=== PATIENT | female | born 1945 | race Caucasian/White ===

== ENCOUNTER 2017-08-28 19:46 | Inpatient (IN) | payer MEDICARE, OTHER ==
[~2017-08-28] VITALS: Ht 167.6 cm; Wt 132.0 kg
[2017-08-28] MEDS ORDERED: fentaNYL PF VIAL 100 MCG/2 ML VIAL IV PRN ×2 (20:15→22:45)
--- NOTE | 2017-08-28 20:22 | ED.ADGEN ---
Past Medical History Past Medical History: Fibromyalgia, Hypertension Alcohol Use: None Drug Use: None Adult General Chief Complaint Chief Complaint: MECHANICAL FALL HPI HPI Patient is a 72 year old woman, history of hypertension, fibromyalgia, who is a limited historian, who presents to the emergency department via EMS with a complaint of worsening left lower extremity pain. Patient states that she fell about 3 weeks ago, falling onto a laundry basket, with her left hip. She states that she had persistent pain in the left side since that time. She states that she fell twice today, when her leg "gave out", she denies striking her head or neck, any loss of consciousness, any chest pain or shortness breath, states that she does feel as though she has weakness in the left lower family, but is uncertain and may be due to pain. She denies any nausea or vomiting, any urinary complaints, any other injuries or complaints. Patient noted to have a cool, mottled, left foot, unable to palpate pedal pulses either manually or with Doppler. Patient's right foot noted to be perfused, within normal pedal pulses. Review of Systems Review of Systems Constitutional: Denies fever or chills. [] Eyes: Denies change in visual acuity. [] HENT: Denies nasal congestion or sore throat. [] Respiratory: Denies cough or shortness of breath. [] Cardiovascular: Denies chest pain or edema. [] GI: Denies abdominal pain, nausea, vomiting, bloody stools or diarrhea. [] : Denies dysuria. [] Musculoskeletal: Denies back pain or pain in the left hip radiating down the left leg. Multiple falls. Integument: Denies rash. [] Neurologic: Denies headache, focal weakness or sensory changes. [] Endocrine: Denies polyuria or polydipsia. [] Lymphatic: Denies swollen glands. [] Psychiatric: Denies depression or anxiety. [] Current Medications Current Medications Current Medications Medications (Trade) Dose Ordered Sig/Gallito Start Time Stop Time Status Last Admin Dose Admin Fentanyl Citrate (Fentanyl 2ml Vial) 25 mcg PRN Q15MIN PRN 08/28/17 20:15 08/29/17 20:14 08/28/17 20:34 25 MCG Sodium Chloride 1,000 ml @ 1,000 mls/hr 1X ONCE 08/28/17 21:15 08/28/17 22:14 DC 08/28/17 21:15 1,000 MLS/HR Allergies Allergies Allergies Coded Allergies Type Severity Reaction Last Updated Verified No Known Drug Allergies 08/28/17 No Physical Exam Physical Exam Constitutional: Well developed, well nourished, no acute distress, non-toxic appearance. [] HENT: Normocephalic, atraumatic, bilateral external ears normal, oropharynx moist, no oral exudates, nose normal. [] Eyes: PERRLA, EOMI, conjunctiva normal, no discharge. [] Neck: No tenderness, supple, no stridor. [] C-collar placed in the emergency department, no similar deformities appreciated. Cardiovascular:Heart rate regular rhythm, no murmur, S1, S2, soft heart sounds, rubs or gallops. [] Lungs & Thorax: Bilateral breath sounds clear to auscultation , no wheezing, rhonchi, rales. Patient with contusion noted over the right upper back, no chest wall crepitus. No tenderness. Abdomen: Bowel sounds normal, obese, no rebound, no rigidity, no guarding, soft , no tenderness, no masses, no pulsatile masses. [] Skin: Warm, dry, no erythema, no rash. [] Back: No midline or paraspinal tenderness, no step-offs or deformities, no CVA tenderness. [] Extremities: Patient complaining of pain in the lateral aspect of the hip, radiating towards the groin and the left, states the pain does radiate down into the femur, patient with effusion and swelling noted around the left knee, right knee is unremarkable, patient with small abrasion noted over the right anterior tibial region, but no bony point tenderness or crepitus,, however patient's left foot is noted to be mottled, cool to the touch, no palpable pedal pulse, patient with significant subcutaneous tissue, limiting evaluation of the popliteal, patient noted to have normal pulses with good perfusion in the right foot, obese, no cyanosis, no clubbing, ROM intact, no edema. [] Neurologic: Alert and oriented X 3, normal motor function, normal sensory function, no focal deficits noted. [] Psychologic: Affect normal, judgement normal, mood normal. [] Current Patient Data Vital Signs Vital Signs Date Time Temp Pulse Resp B/P (MAP) Pulse Ox O2 Delivery O2 Flow Rate FiO2 08/28/17 21:04 20 97 Room Air 08/28/17 19:54 97.8 80 175/84 (114) 97.8 Lab Values Laboratory Tests Test 08/28/17 20:10 White Blood Count 8.9 x10^3/uL (4.0-11.0) Red Blood Count 4.32 x10^6/uL (3.50-5.40) Hemoglobin 14.9 g/dL (12.0-15.5) Hematocrit 42.6 % (36.0-47.0) Mean Corpuscular Volume 99 fL (79-100) Mean Corpuscular Hemoglobin 35 pg (25-35) Mean Corpuscular Hemoglobin Concent 35 g/dL (31-37) Red Cell Distribution Width 12.5 % (11.5-14.5) Platelet Count 200 x10^3/uL (140-400) Neutrophils (%) (Auto) 79 % (31-73) H Lymphocytes (%) (Auto) 10 % (24-48) L Monocytes (%) (Auto) 10 % (0-9) H Eosinophils (%) (Auto) 1 % (0-3) Basophils (%) (Auto) 1 % (0-3) Neutrophils # (Auto) 7.1 x10^3uL (1.8-7.7) Lymphocytes # (Auto) 0.9 x10^3/uL (1.0-4.8) L Monocytes # (Auto) 0.9 x10^3/uL (0.0-1.1) Eosinophils # (Auto) 0.1 x10^3/uL (0.0-0.7) Basophils # (Auto) 0.0 x10^3/uL (0.0-0.2) Prothrombin Time 13.2 SEC (11.7-14.0) Prothrombin Time INR 1.1 (0.8-1.1) PTT 24 SEC (24-38) Sodium Level 137 mmol/L (136-145) Potassium Level 3.5 mmol/L (3.5-5.1) Chloride Level 99 mmol/L (98-107) Carbon Dioxide Level 31 mmol/L (21-32) Anion Gap 7 (6-14) Blood Urea Nitrogen 29 mg/dL (7-20) H Creatinine 1.3 mg/dL (0.6-1.0) H Estimated GFR (Cockcroft-Gault) 40.5 BUN/Creatinine Ratio 22 (6-20) H Glucose Level 319 mg/dL (70-99) H Lactic Acid Level 2.3 mmol/L (0.4-2.0) H Calcium Level 10.6 mg/dL (8.5-10.1) H Total Bilirubin 0.8 mg/dL (0.2-1.0) Aspartate Amino Transferase (AST) 34 U/L (15-37) Alanine Aminotransferase (ALT) 44 U/L (14-59) Alkaline Phosphatase 94 U/L (46-116) Troponin I Quantitative < 0.017 ng/mL (0.000-0.055) EV-Rpn-K-Type Natriuretic Peptide 147 pg/mL (0-124) H Total Protein 7.5 g/dL (6.4-8.2) Albumin 3.3 g/dL (3.4-5.0) L Albumin/Globulin Ratio 0.8 (1.0-1.7) L Laboratory Tests 08/28/17 20:10 Laboratory Tests 08/28/17 20:10 EKG EKG EC: Sinus rhythm, heart rate 77 beats/minute, left axis deviation, QTC of 443, GA 144, QRS of 118, patient with left anterior vesicular block and left ventricular hypertrophy noted with mild baseline artifact. Abnormal ECG, does not meet STEMI criteria. As interpreted by me.[] Radiology/Procedures Radiology/Procedures [][facility] [address] [place] [address] IMAGING REPORT Signed PATIENT: TAMMY ARAIZA ACCOUNT: [id number] : 1945 LOCATION: ER AGE: 72 SEX: F EXAM STATUS: REG ER ORD. PHYSICIAN: BRENNON RG DO REASON: history trauma, absent pedal pulse PROCEDURE: VENOUS LOWER EXTREMITY LEFT EXAM: Left lower extremity venous Doppler sonogram; left lower extremity arterial Doppler sonogram. HISTORY: Pain. TECHNIQUE: Jalloh scale and color Doppler sonographic evaluation of the left lower extremity veins and arteries with spectral waveform analysis was performed. FINDINGS: Venous Doppler sonogram: There is normal color flow, normal compressibility and there are normal spectral waveforms in the common femoral, superficial femoral, popliteal, posterior tibial and greater saphenous veins. The distal superficial femoral vein is not well seen due to body habitus. Arterial Doppler sonogram: There are triphasic waveforms within the left common femoral, superficial femoral, popliteal and proximal posterior tibial artery and and anterior tibial artery and biphasic waveforms throughout the remainder of the left lower extremity arteries. There are normal peak systolic velocities, described below. For reference purposes, the peak systolic velocities are 136 cm/s within the common femoral artery, 72 cm/s within the deep femoral artery, 120 cm/s within the proximal superficial femoral artery, 117 cm/s within the mid superficial femoral artery, 119 cm/s within the distal superficial femoral artery, 115 cm/s within the popliteal artery, 84 cm/s within the proximal posterior tibial artery, 81 cm/s within the distal posterior tibial artery, 52 cm/s within the peroneal artery, 111 cm/s within the anterior tibial artery and 42 cm/s within the dorsalis pedis artery. IMPRESSION: 1. No Doppler evidence of lower extremity venous thrombosis, with slightly limited evaluation due to body habitus. 2. No Doppler evidence of lower extremity arterial hemodynamically significant stenosis or occlusion. Electronically signed by: Emeli Cat MD (08/28/2017 9:11 PM) [facility] DICTATED and SIGNED BY: EMELI CAT MD DATE: 08/28/172107 CC: BRENNON GR DO; BETTY MADRID MD ~ Impressions: [facility] [address] [place] [address] IMAGING REPORT Signed PATIENT: TAMMY ARAIZA ACCOUNT: [id number] : 1945 LOCATION: ER AGE: 72 SEX: F EXAM STATUS: REG ER ORD. PHYSICIAN: BRENNON GR DO REASON: fall/pain PROCEDURE: LEFT FEMUR XRAY EXAM: Pelvis and left hip, 3 views; left femur, 2 views. HISTORY: Fall. COMPARISON: None. FINDINGS: Pelvis and left hip: A frontal view of the pelvis and frontal and frog-leg views of the left hip are obtained. No displaced fracture is seen. The femoral heads are normal in position. There is degenerative endplate remodeling with disc space narrowing and facet arthropathy at the lower lumbar levels. Left femur: Frontal and lateral views of the left femur are obtained. There is severe tricompartmental joint space narrowing and spurring involving the left knee. There is a left knee effusion, incompletely evaluated due to image projection. IMPRESSION: 1. Severe left knee osteoarthritis with a suspected joint effusion. 2. No acute osseous finding. Electronically signed by: Emeli Cat MD (08/28/2017 10:23 PM) [facility] DICTATED and SIGNED BY: EMELI CAT MD DATE: 08/28/172220 CC: BRENNON GR DO; BETTY MADRID MD ~ Chest x-ray: One view: Patient with straining left heart border, top normal cardiac silhouette, no infiltrates, no effusions, no pneumothorax, no soft tissue or bony abnormalities identified. Mildly elevated right hemidiaphragm. is rotated and examination which does limit, no acute disease identified. As interpreted by me. Left tib-fib x-ray: Two-view: Patient with osteoarthritis, and effusion noted, no evidence of acute fracture or subluxation. As interpreted by me. Course & Med Decision Making Course & Med Decision Making Pertinent Labs and Imaging studies reviewed. (See chart for details) Patient received ultrasound studies assessing for arterial and venous occlusion in the left lower extremity due to an ability to palpate left pedal pulses with both manual and Doppler evaluation. No hemodynamically significant arterial occlusion noted, no DVT identified. Patient has full sensation and motor function in the foot. X-rays obtained do not reveal evidence of acute fracture or subluxation, patient noted to have a knee effusion. Patient noted to be dehydrated, with an elevated creatinine and blood urea nitrogen, lactic of 2.3. IV fluids initiated in the emergency department. Findings as above discussed with Dr. Garza of internal medicine, will admit for symptom management, orthopedic evaluation, PT OT, and hydration, with repeat laboratory studies ordered for the a.m. Dragon Disclaimer Dragon Disclaimer This electronic medical record was generated, in whole or in part, using a voice recognition dictation system. Departure Impression: Primary Impression: Left leg pain Additional Impressions: Lactic acidosis Dehydration Disposition: ADMITTED INPATIENT Admitting Physician: La Nena Gazra Condition: IMPROVED Problem Qualifiers BRENNON GR DO Aug 28, 2017 20:22
[2017-08-28 20:23] LABS: BASO % 1 % (0-3); EOS % 1 % (0-3); HEMATOCRIT 42.6 % (36.0-47.0); HEMOGLOBIN 14.9 g/dL (12.0-15.5); LYMPH # 0.9 x10^3/uL (1.0-4.8); LYMPH % 10 % (24-48); MEAN CORPUSCULAR HEMOGLOBIN 35 pg (25-35); MEAN CORPUSCULAR HGB CONC 35 g/dL (31-37); MEAN CORPUSCULAR VOLUME 99 fL (79-100); MONO % 10 % (0-9); NEUT % 79 % (31-73); PLATELET COUNT 200 x10^3/uL (140-400); RED BLOOD COUNT 4.32 x10^6/uL (3.50-5.40); RED CELL DISTRIBUTION WIDTH 12.5 % (11.5-14.5); WHITE BLOOD COUNT 8.9 x10^3/uL (4.0-11.0)
[2017-08-28 20:32] LABS: INR 1.1 (0.8-1.1); PROTHROMBIN TIME PATIENT 13.2 SEC (11.7-14.0)
[2017-08-28 20:33] LABS: CALCIUM 10.6 mg/dL (8.5-10.1); CREATININE 1.3 mg/dL (0.6-1.0); GFR 40.5; POTASSIUM 3.5 mmol/L (3.5-5.1)
[2017-08-28 20:39] LABS: ALBUMIN 3.3 g/dL (3.4-5.0); ALBUMIN/GLOBULIN RATIO 0.8 (1.0-1.7); TOTAL BILIRUBIN 0.8 mg/dL (0.2-1.0); TOTAL PROTEIN 7.5 g/dL (6.4-8.2)
--- NOTE | 2017-08-28 21:14 | RAD ---
EXAM: Left lower extremity venous Doppler sonogram; left lower extremity arterial Doppler sonogram. HISTORY: Pain. TECHNIQUE: Jalloh scale and color Doppler sonographic evaluation of the left lower extremity veins and arteries with spectral waveform analysis was performed. FINDINGS: Venous Doppler sonogram: There is normal color flow, normal compressibility and there are normal spectral waveforms in the common femoral, superficial femoral, popliteal, posterior tibial and greater saphenous veins. The distal superficial femoral vein is not well seen due to body habitus. Arterial Doppler sonogram: There are triphasic waveforms within the left common femoral, superficial femoral, popliteal and proximal posterior tibial artery and and anterior tibial artery and biphasic waveforms throughout the remainder of the left lower extremity arteries. There are normal peak systolic velocities, described below. For reference purposes, the peak systolic velocities are 136 cm/s within the common femoral artery, 72 cm/s within the deep femoral artery, 120 cm/s within the proximal superficial femoral artery, 117 cm/s within the mid superficial femoral artery, 119 cm/s within the distal superficial femoral artery, 115 cm/s within the popliteal artery, 84 cm/s within the proximal posterior tibial artery, 81 cm/s within the distal posterior tibial artery, 52 cm/s within the peroneal artery, 111 cm/s within the anterior tibial artery and 42 cm/s within the dorsalis pedis artery. IMPRESSION: 1. No Doppler evidence of lower extremity venous thrombosis, with slightly limited evaluation due to body habitus. 2. No Doppler evidence of lower extremity arterial hemodynamically significant stenosis or occlusion. Electronically signed by: Emeli Painter MD (08/28/2017 9:11 PM) [facility]
[2017-08-28] MEDS ORDERED: IV NORMAL SALINE 1000ML BAG 1,000 ML IV ONE (21:15)
--- NOTE | 2017-08-28 21:27 | RAD ---
CT head and cervical spine without contrast 08/28/2017 Clinical indication: Fall, head and neck injury. COMPARISON: None. TECHNIQUE: Portable CT images of the head and cervical spine were obtained without contrast according to standard protocol. *One or more of the following individualized dose reduction techniques were utilized for this examination: 1. Automated exposure control. 2. Adjustment of the mA and/or kV according to patient size. 3. Use of iterative reconstruction technique. FINDINGS: Head: Mild prominence of the ventricles and subarachnoid spaces compatible with mild generalized cerebral atrophy. No acute intracranial hemorrhage or extra-axial fluid collection. There is patchy periventricular white matter low attenuation compatible with moderate nonspecific white matter disease. No midline shift. Basal cisterns are patent. Mastoid air cells and visualized paranasal sinuses are well aerated. Cervical spine: No acute cervical spine fracture or traumatic malalignment. No predental space widening. Atlantoaxial articulation is maintained. Vertebral body heights are maintained. There is mild multilevel cervical spondylosis with disc space narrowing and marginal osteophyte formation from C5-C6 to C7-T1. Exam is not optimized for evaluation of spinal canal narrowing. No significant neural foraminal narrowing. There are multiple punctate calcifications of the palatine tonsils, likely tonsiliths. IMPRESSION: Head: 1. No acute intracranial hemorrhage. 2. Moderate nonspecific white matter disease, likely related to chronic small vessel ischemic disease. Cervical spine: 1. No acute cervical spine fracture or subluxation. Electronically signed by: Alfonso Pollack MD (08/28/2017 9:23 PM) [facility]
--- NOTE | 2017-08-28 22:26 | RAD ---
EXAM: Pelvis and left hip, 3 views; left femur, 2 views. HISTORY: Fall. COMPARISON: None. FINDINGS: Pelvis and left hip: A frontal view of the pelvis and frontal and frog-leg views of the left hip are obtained. No displaced fracture is seen. The femoral heads are normal in position. There is degenerative endplate remodeling with disc space narrowing and facet arthropathy at the lower lumbar levels. Left femur: Frontal and lateral views of the left femur are obtained. There is severe tricompartmental joint space narrowing and spurring involving the left knee. There is a left knee effusion, incompletely evaluated due to image projection. IMPRESSION: 1. Severe left knee osteoarthritis with a suspected joint effusion. 2. No acute osseous finding. Electronically signed by: Emeli Painter MD (08/28/2017 10:23 PM) [facility]
[2017-08-28] MEDS ORDERED: ONDANSETRON PF 4 MG/2 ML VIAL. IV PRN (22:45)
[2017-08-28] MEDS ORDERED: DEXTROSE 50% 25 GM / 50ML DISP.SYRIN. IV PRN (22:45)
[2017-08-28] MEDS ORDERED: ACETAMINOPHEN 325 MG TABLET. PO PRN (22:45)
[2017-08-28 23:06] LABS: BILIRUBIN,URINE NEGATIVE (NEG); GLUCOSE,URINE 250 mg/dL (NEG); NITRITE,URINE NEGATIVE (NEG); PH,URINE 6.5; PROTEIN,URINE NEGATIVE (NEG-TRACE); UROBILINOGEN,URINE 0.2 mg/dL (0.2 mg/dL)
[2017-08-28 23:18] LABS: BACTERIA,URINE 0 /HPF (0-FEW); RBC,URINE TNTC /HPF (0-2); SQUAMOUS EPITHELIAL CELL,UR MOD /LPF; WBC,URINE OCC /HPF (0-4)
[2017-08-28 23:25] LABS: BARBITURATES NEG (NEG); BENZODIAZEPINES NEG (NEG); CANNABINOIDS NEG (NEG); COCAINE NEG (NEG); METHADONE NEG (NEG); OPIATES NEG (NEG); PHENCYCLIDINE NEG (NEG)
[2017-08-29] VITALS (9 sets, daily range): BP systolic 112–153; BP diastolic 45–76
[2017-08-29] MEDS: IV NORMAL SALINE 1000ML BAG 1,000 ML IV SCH ×3 (01:27→14:37)
[2017-08-29] MEDS ORDERED: MEGE40TA PO (02:54)
[2017-08-29] MEDS ORDERED: GABA-586 PO (02:54)
[2017-08-29] MEDS ORDERED: TRIA1TAB3 PO (02:54)
[2017-08-29] MEDS ORDERED: CHOL10003 PO (03:12)
[2017-08-29] MEDS ORDERED: ASCO500T3 PO (03:12)
[2017-08-29 06:04] LABS: BASO # 0.1 x10^3/uL (0.0-0.2); BASO % 1 % (0-3); EOS % 2 % (0-3); HEMATOCRIT 38.4 % (36.0-47.0); HEMOGLOBIN 13.4 g/dL (12.0-15.5); LYMPH # 1.4 x10^3/uL (1.0-4.8); LYMPH % 15 % (24-48); MEAN CORPUSCULAR HEMOGLOBIN 34 pg (25-35); MEAN CORPUSCULAR HGB CONC 35 g/dL (31-37); MEAN CORPUSCULAR VOLUME 98 fL (79-100); MONO % 11 % (0-9); NEUT % 72 % (31-73); PLATELET COUNT 179 x10^3/uL (140-400); RED BLOOD COUNT 3.94 x10^6/uL (3.50-5.40); RED CELL DISTRIBUTION WIDTH 12.7 % (11.5-14.5); WHITE BLOOD COUNT 9.2 x10^3/uL (4.0-11.0)
[2017-08-29 06:15] LABS: CALCIUM 9.6 mg/dL (8.5-10.1); CREATININE 0.9 mg/dL (0.6-1.0); GFR 61.9; POTASSIUM 3.5 mmol/L (3.5-5.1)
--- NOTE | 2017-08-29 06:28 | EKG ---
[facility] [address] [place] [address] Test Date: 2017-08-28 Test Time: 20:11:35 Pat Name: TAMMY ARAIZA Department: Room: 432 Gender: F Line Leader: : 1945 Requested By: BRENNON GR Order Number: [id number] Reading MD: Deyvi Lemos MD Measurements Intervals [place] Rate: 76 P: -33 MD: 144 QRS: -52 QRSD: 118 T: 34 QT: 390 QTc: 443 Interpretive Statements SINUS RHYTHM ABNORMAL LEFT AXIS DEVIATION R-S TRANSITION ZONE IN V LEADS DISPLACED TO THE LEFT LEFT ANTERIOR FASCICULAR BLOCK LEFT VENTRICULAR HYPERTROPHY Electronically Signed On 09-02-2017 10:36:53 [employer] by Deyvi Lemos MD
--- NOTE | 2017-08-29 07:30 | RAD ---
Portable AP upright view CXR: Clinical indications: Anterior chest wall pain after a fall. Comparison: None available. Findings: Mild elevation of the right hemidiaphragm is seen. No acute lung infiltrate or pleural effusion or pulmonary edema or lung mass or pneumothorax is seen. The heart size, pulmonary vasculature, mediastinum and both lois are unremarkable. Impression: No acute lung infiltrate..
--- NOTE | 2017-08-29 07:32 | RAD ---
Two-view study of the left tibia and fibula Indications: Lower leg pain after a fall today. Findings: No acute fracture or dislocation or osteolytic process is seen. Primary degenerative osteoarthritis of all 3 compartments of the left knee is evident. Left knee joint effusion is seen. IMPRESSION: No acute fracture.
--- NOTE | 2017-08-29 07:34 | RAD ---
Three-view study of the left ankle Indications: Left ankle pain after a fall today. Findings: No acute fracture or dislocation or osteolytic process is seen. The mortise ankle joint is intact. Mild degenerative spurring of the tibiotalar joint compartment is seen. Moderate-sized plantar spur of the calcaneus is seen. IMPRESSION: No acute fracture.
[2017-08-29] MEDS ORDERED: INSULIN ASPART 300 UNITS/3 ML INSULN.PEN SQ SCH (08:00)
[2017-08-29] MEDS: DICLOFENAC SODIUM 1% TOPICAL GEL 100GM TUBE. TP SCH ×2 (08:36→21:59)
[2017-08-29] MEDS ORDERED: ONDANSETRON PF 4 MG/2 ML VIAL. IV PRN (09:00)
[2017-08-29] MEDS ORDERED: DEXTROSE 50% 25 GM / 50ML DISP.SYRIN. IV PRN (09:00)
[2017-08-29] MEDS ORDERED: BUPR150T6 PO (09:49)
[2017-08-29] MEDS ORDERED: MILN50TA PO (09:49)
[2017-08-29] MEDS ORDERED: PROP40TA PO (09:49)
--- NOTE | 2017-08-29 10:47 | PDOC1 ---
History and Physical Date of Admission Date of Admission DATE: 08/29/17 TIME: 10:39 Identification/Chief Complaint Chief Complaint legs gave out Problems: Source Source: Caregiver, Chart review, Patient History of Present Illness History of Present Illness 72 y.o obese female,ambulates with walker and lives at home with , bMI 45, felt legs gave out and tumbled over her laundry basket, no presyncopal sxs, was able to get up after but markedly weak and very tender up to the left hip area when I raise her left leg, SOme chronic back pain too, LAbs and imaging ok, agreeable to rehab if needed.,NO fx on imaging, On my attempt to raise leg, severe pain to left side and back. Admitted bec of ambulation and pain issues. NOs addle anestehsia, neuropathy, Sz like activities SHe did mention to me everytime she looks down on her feet, she thought her feet was wobbly/moving like in waves and she fears she would fall. Denies headache or dizziness or any FNDs Past Medical History Cardiovascular: HTN Psych: Depression Musculoskeletal: low back pain, Other (neuropathy) Rheumatologic: Fibromyalgia Past Surgical History Past Surgical History: No pertinent history Family History Family History: Hypertension Social History Smoke: No ALCOHOL: none Drugs: None Current Problem List Problem List Problems Medical Problems: (1) Dehydration Status: Acute (2) Lactic acidosis Status: Acute (3) Left leg pain Status: Acute Problems: Current Medications Current Medications Current Medications Fentanyl Citrate (Fentanyl 2ml Vial) 25 mcg PRN Q15MIN PRN IV PAIN GREATER THAN 3/10 Last administered on 08/28/17 20:34; Start 08/28/17 at 20:15; Stop 08/29/17 at 20:14 Sodium Chloride 1,000 ml @ 1,000 mls/hr 1X ONCE IV Last administered on 21:15; Start 08/28/17 at 21:15; Stop 08/28/17 at 22:14; Status DC Ondansetron HCl (Zofran) 4 mg PRN Q8HRS PRN IV NAUSEA/VOMITING; Start 08/28/17 at 22:45; Stop 08/29/17 at 08:53; Status DC Fentanyl Citrate (Fentanyl 2ml Vial) 50 mcg PRN Q2HR PRN IV SEVERE PAIN Last administered on 08/29/17 05:27; Start 08/28/17 at 22:45; Stop 08/29/17 at 22:44 Sodium Chloride 1,000 ml @ 125 mls/hr Q8H IV Last administered on 08/29/17 08 :36; Start 08/28/17 at 22:42; Stop 08/29/17 at 22:41 Acetaminophen (Tylenol) 650 mg PRN Q4HRS PRN PO FEVER; Start 08/28/17 at 22:45 ; Stop 08/29/17 at 22:44 Insulin Aspart (NovoLOG) 0-5 UNITS TIDWMEALS SQ Last administered on 08/29/17 08:40; Start 08/29/17 at 08:00; Stop 08/29/17 at 08:53; Status DC Dextrose (Dextrose 50%-Water Syringe) 12.5 gm PRN Q15MIN PRN IV SEE COMMENTS; Start 08/28/17 at 22:45 Diclofenac Sodium (Voltaren) 1 sinan BID TP Last administered on 08/29/17 08:36 ; Start 08/29/17 at 09:00 Ondansetron HCl (Zofran) 4 mg PRN Q6HRS PRN IV NAUSEA/VOMITING; Start 08/29/17 at 09:00; Stop 08/30/17 at 08:59 Insulin Aspart (NovoLOG) 0-9 UNITS TIDWMEALS SQ ; Start 08/29/17 at 12:00 Dextrose (Dextrose 50%-Water Syringe) 12.5 gm PRN Q15MIN PRN IV SEE COMMENTS; Start 08/29/17 at 09:00; Status UNV Active Scripts Active Reported Propranolol Hcl 40 Mg Tablet 1 Tab PO BID Bupropion Xl (Bupropion Hcl) 150 Mg Tab.er.24h 1 Tab PO BID Savella (Milnacipran Hcl) 50 Mg Tablet 100 Mg PO BID Ascorbic Acid 500 Mg Tablet 500 Mg PO BID Vitamin D3 (Cholecalciferol (Vitamin D3)) 1,000 Unit Tablet 1 Tab PO BID Gabapentin 300 Mg Capsule 300 Mg PO TID Megestrol Acetate 40 Mg Tablet 40 Mg PO Triamterene-Hctz 37.5-25 Mg Tb (Triamterene/Hydrochlorothiazid) 1 Each Tablet 1 Tab PO DAILY Allergies Allergies: Coded Allergies: No Known Drug Allergies (Unverified , 08/28/17) ROS Review of System as per HPI, all else is neg, no SOA, CP, abd pain or diarrhea, all weak and pain MSK and back General: No: Chills, Night Sweats, Fatigue, Malaise, Appetite, Other Physical Exam General: Alert, Oriented X3, Cooperative, No acute distress HEENT: Atraumatic, PERRLA, EOMI Lungs: Clear to auscultation, Normal air movement Heart: S1S2, RRR, no thrills, no rubs, no gallops, no murmurs Cardiovascular: S1, S2 Breasts: Normal, Rt breast nml w/o mass, Lt breast nml w/o mass, Nipples normal Abdomen: Normal bowel sounds, Soft, No tenderness, No hepatosplenomegaly, No masses Rectal Exam: not examined Extremities: Other (positive SLR left ) Skin: No rashes, No breakdown, No significant lesion Neuro: Normal gait, Normal speech, Strength at 5/5 X4 ext, Normal tone, Sensation intact, Cranial nerves 3-12 NL, Reflexes 2+ Psych/Mental Status: Mental status NL, Mood NL Vitals Vitals Vital Signs Date Time Temp Pulse Resp B/P (MAP) Pulse Ox O2 Delivery O2 Flow Rate FiO2 08/29/17 07:00 97.8 81 20 120/45 (70) 97 Nasal Cannula 3.0 97.8 Labs Labs Laboratory Tests Test 08/28/17 20:10 08/28/17 22:50 08/29/17 05:00 08/29/17 06:00 White Blood Count 8.9 x10^3/uL (4.0-11.0) 9.2 x10^3/uL (4.0-11.0) Red Blood Count 4.32 x10^6/uL (3.50-5.40) 3.94 x10^6/uL (3.50-5.40) Hemoglobin 14.9 g/dL (12.0-15.5) 13.4 g/dL (12.0-15.5) Hematocrit 42.6 % (36.0-47.0) 38.4 % (36.0-47.0) Mean Corpuscular Volume 99 fL (79-100) 98 fL (79-100) Mean Corpuscular Hemoglobin 35 pg (25-35) 34 pg (25-35) Mean Corpuscular Hemoglobin Concent 35 g/dL (31-37) 35 g/dL (31-37) Red Cell Distribution Width 12.5 % (11.5-14.5) 12.7 % (11.5-14.5) Platelet Count 200 x10^3/uL (140-400) 179 x10^3/uL (140-400) Neutrophils (%) (Auto) 79 % (31-73) 72 % (31-73) Lymphocytes (%) (Auto) 10 % (24-48) 15 % (24-48) Monocytes (%) (Auto) 10 % (0-9) 11 % (0-9) Eosinophils (%) (Auto) 1 % (0-3) 2 % (0-3) Basophils (%) (Auto) 1 % (0-3) 1 % (0-3) Neutrophils # (Auto) 7.1 x10^3uL (1.8-7.7) 6.6 x10^3uL (1.8-7.7) Lymphocytes # (Auto) 0.9 x10^3/uL (1.0-4.8) 1.4 x10^3/uL (1.0-4.8) Monocytes # (Auto) 0.9 x10^3/uL (0.0-1.1) 1.0 x10^3/uL (0.0-1.1) Eosinophils # (Auto) 0.1 x10^3/uL (0.0-0.7) 0.2 x10^3/uL (0.0-0.7) Basophils # (Auto) 0.0 x10^3/uL (0.0-0.2) 0.1 x10^3/uL (0.0-0.2) Prothrombin Time 13.2 SEC (11.7-14.0) Prothromb Time International Ratio 1.1 (0.8-1.1) Activated Partial Thromboplast Time 24 SEC (24-38) Sodium Level 137 mmol/L (136-145) 140 mmol/L (136-145) Potassium Level 3.5 mmol/L (3.5-5.1) 3.5 mmol/L (3.5-5.1) Chloride Level 99 mmol/L (98-107) 104 mmol/L (98-107) Carbon Dioxide Level 31 mmol/L (21-32) 30 mmol/L (21-32) Anion Gap 7 (6-14) 6 (6-14) Blood Urea Nitrogen 29 mg/dL (7-20) 24 mg/dL (7-20) Creatinine 1.3 mg/dL (0.6-1.0) 0.9 mg/dL (0.6-1.0) Estimated GFR (Cockcroft-Gault) 40.5 61.9 BUN/Creatinine Ratio 22 (6-20) Glucose Level 319 mg/dL (70-99) 184 mg/dL (70-99) Lactic Acid Level 2.3 mmol/L (0.4-2.0) 1.2 mmol/L (0.4-2.0) Calcium Level 10.6 mg/dL (8.5-10.1) 9.6 mg/dL (8.5-10.1) Total Bilirubin 0.8 mg/dL (0.2-1.0) Aspartate Amino Transf (AST/SGOT) 34 U/L (15-37) Alanine Aminotransferase (ALT/SGPT) 44 U/L (14-59) Alkaline Phosphatase 94 U/L (46-116) Troponin I Quantitative < 0.017 ng/mL (0.000-0.055) < 0.017 ng/mL (0.000-0.055) VJ-Nyk-W-Type Natriuretic Peptide 147 pg/mL (0-124) Total Protein 7.5 g/dL (6.4-8.2) Albumin 3.3 g/dL (3.4-5.0) Albumin/Globulin Ratio 0.8 (1.0-1.7) Urine Collection Type Unknown Urine Color Ileana Urine Clarity Clear Urine pH 6.5 Urine Specific [place] >=1.030 Urine Protein Negative mg/dL (NEG-TRACE) Urine Glucose (UA) 250 mg/dL (NEG) Urine Ketones (Stick) Trace mg/dL (NEG) Urine Blood Large (NEG) Urine Nitrite Negative (NEG) Urine Bilirubin Negative (NEG) Urine Urobilinogen Dipstick 0.2 mg/dL (0.2 mg/dL) Urine Leukocyte Esterase Negative (NEG) Urine RBC Tntc /HPF (0-2) Urine WBC Occ /HPF (0-4) Urine Squamous Epithelial Cells Mod /LPF Urine Amorphous Sediment Present /HPF Urine Bacteria 0 /HPF (0-FEW) Urine Opiates Screen Neg (NEG) Urine Methadone Screen Neg (NEG) Urine Barbiturates Neg (NEG) Urine Phencyclidine Screen Neg (NEG) Urine Amphetamine/Methamphetamine Neg (NEG) Urine Benzodiazepines Screen Neg (NEG) Urine Cocaine Screen Neg (NEG) Urine Cannabinoids Screen Neg (NEG) Urine Ethyl Alcohol Neg (NEG) Test 08/29/17 07:24 08/29/17 10:22 Glucose (Fingerstick) 224 mg/dL (70-99) 243 mg/dL (70-99) Laboratory Tests Test 08/28/17 20:10 08/28/17 22:50 08/29/17 05:00 08/29/17 06:00 White Blood Count 8.9 x10^3/uL (4.0-11.0) 9.2 x10^3/uL (4.0-11.0) Red Blood Count 4.32 x10^6/uL (3.50-5.40) 3.94 x10^6/uL (3.50-5.40) Hemoglobin 14.9 g/dL (12.0-15.5) 13.4 g/dL (12.0-15.5) Hematocrit 42.6 % (36.0-47.0) 38.4 % (36.0-47.0) Mean Corpuscular Volume 99 fL (79-100) 98 fL (79-100) Mean Corpuscular Hemoglobin 35 pg (25-35) 34 pg (25-35) Mean Corpuscular Hemoglobin Concent 35 g/dL (31-37) 35 g/dL (31-37) Red Cell Distribution Width 12.5 % (11.5-14.5) 12.7 % (11.5-14.5) Platelet Count 200 x10^3/uL (140-400) 179 x10^3/uL (140-400) Neutrophils (%) (Auto) 79 % (31-73) 72 % (31-73) Lymphocytes (%) (Auto) 10 % (24-48) 15 % (24-48) Monocytes (%) (Auto) 10 % (0-9) 11 % (0-9) Eosinophils (%) (Auto) 1 % (0-3) 2 % (0-3) Basophils (%) (Auto) 1 % (0-3) 1 % (0-3) Neutrophils # (Auto) 7.1 x10^3uL (1.8-7.7) 6.6 x10^3uL (1.8-7.7) Lymphocytes # (Auto) 0.9 x10^3/uL (1.0-4.8) 1.4 x10^3/uL (1.0-4.8) Monocytes # (Auto) 0.9 x10^3/uL (0.0-1.1) 1.0 x10^3/uL (0.0-1.1) Eosinophils # (Auto) 0.1 x10^3/uL (0.0-0.7) 0.2 x10^3/uL (0.0-0.7) Basophils # (Auto) 0.0 x10^3/uL (0.0-0.2) 0.1 x10^3/uL (0.0-0.2) Prothrombin Time 13.2 SEC (11.7-14.0) Prothromb Time International Ratio 1.1 (0.8-1.1) Activated Partial Thromboplast Time 24 SEC (24-38) Sodium Level 137 mmol/L (136-145) 140 mmol/L (136-145) Potassium Level 3.5 mmol/L (3.5-5.1) 3.5 mmol/L (3.5-5.1) Chloride Level 99 mmol/L (98-107) 104 mmol/L (98-107) Carbon Dioxide Level 31 mmol/L (21-32) 30 mmol/L (21-32) Anion Gap 7 (6-14) 6 (6-14) Blood Urea Nitrogen 29 mg/dL (7-20) 24 mg/dL (7-20) Creatinine 1.3 mg/dL (0.6-1.0) 0.9 mg/dL (0.6-1.0) Estimated GFR (Cockcroft-Gault) 40.5 61.9 BUN/Creatinine Ratio 22 (6-20) Glucose Level 319 mg/dL (70-99) 184 mg/dL (70-99) Lactic Acid Level 2.3 mmol/L (0.4-2.0) 1.2 mmol/L (0.4-2.0) Calcium Level 10.6 mg/dL (8.5-10.1) 9.6 mg/dL (8.5-10.1) Total Bilirubin 0.8 mg/dL (0.2-1.0) Aspartate Amino Transf (AST/SGOT) 34 U/L (15-37) Alanine Aminotransferase (ALT/SGPT) 44 U/L (14-59) Alkaline Phosphatase 94 U/L (46-116) Troponin I Quantitative < 0.017 ng/mL (0.000-0.055) < 0.017 ng/mL (0.000-0.055) VZ-Dta-U-Type Natriuretic Peptide 147 pg/mL (0-124) Total Protein 7.5 g/dL (6.4-8.2) Albumin 3.3 g/dL (3.4-5.0) Albumin/Globulin Ratio 0.8 (1.0-1.7) Urine Collection Type Unknown Urine Color Ileana Urine Clarity Clear Urine pH 6.5 Urine Specific [place] >=1.030 Urine Protein Negative mg/dL (NEG-TRACE) Urine Glucose (UA) 250 mg/dL (NEG) Urine Ketones (Stick) Trace mg/dL (NEG) Urine Blood Large (NEG) Urine Nitrite Negative (NEG) Urine Bilirubin Negative (NEG) Urine Urobilinogen Dipstick 0.2 mg/dL (0.2 mg/dL) Urine Leukocyte Esterase Negative (NEG) Urine RBC Tntc /HPF (0-2) Urine WBC Occ /HPF (0-4) Urine Squamous Epithelial Cells Mod /LPF Urine Amorphous Sediment Present /HPF Urine Bacteria 0 /HPF (0-FEW) Urine Opiates Screen Neg (NEG) Urine Methadone Screen Neg (NEG) Urine Barbiturates Neg (NEG) Urine Phencyclidine Screen Neg (NEG) Urine Amphetamine/Methamphetamine Neg (NEG) Urine Benzodiazepines Screen Neg (NEG) Urine Cocaine Screen Neg (NEG) Urine Cannabinoids Screen Neg (NEG) Urine Ethyl Alcohol Neg (NEG) Test 08/29/17 07:24 08/29/17 10:22 Glucose (Fingerstick) 224 mg/dL (70-99) 243 mg/dL (70-99) VTE Prophylaxis Ordered VTE Prophylaxis Devices: Yes VTE Pharmacological Prophylaxi: Yes Assessment/Plan Assessment/Plan 1. POssible Sciatica Left leg 2. Acute on chronic back pain 3. Obesity BMI 45 4. Fibromyalgia 5. HTN 6. LIkely autonomic dysfcn PLAN: Check orthostatics PT./OT COnsult physiatry PAin med SW - dc plans pending PT recs; agreeable to rehab if needed COnt home meds IF orthostatic might benefot from abd binder or adjust meds I held off on any brain imaging as no focal indication at this point Further recs pending above tests DELORES RODRIGUEZ MD Aug 29, 2017 10:47
[2017-08-29] MEDS: MILNACIPRAN 50 MG TABLET PO SCH ×2 (12:20→21:59)
[2017-08-29] MEDS: MEGESTROL 20 MG TABLET. PO SCH (12:20)
[2017-08-29] MEDS: buPROPion XL 150 MG TAB.ER.24H. PO SCH ×2 (12:20→21:59)
[2017-08-29] MEDS: CHOLECALCIFEROL (VITAMIN D3) 1,000 UNIT TABLET PO SCH ×2 (12:20→22:02)
[2017-08-29] MEDS: ASCORBIC ACID 500 MG TABLET PO SCH ×2 (12:20→22:02)
[2017-08-29] MEDS: PROPRANOLOL 40 MG TABLET. PO SCH ×2 (12:21→22:01)
[2017-08-29] MEDS: TRIAMTERENE/HCTZ 37.5/25MG TABLET. PO SCH (12:21)
[2017-08-29] MEDS: INSULIN ASPART 300 UNITS/3 ML INSULN.PEN SQ SCH ×2 (12:26→17:12)
[2017-08-29] MEDS: GABAPENTIN 300 MG CAPSULE. PO SCH ×2 (14:38→21:59)
[2017-08-29] MEDS ORDERED: BUPIVACAINE MPF 0.25% 10 ML VIAL. IJ ONE (16:45)
[2017-08-29] MEDS ORDERED: methylPREDNISolone ACETATE 40 MG/ML VIAL. IM ONE (16:45)
[2017-08-29] MEDS ORDERED: methylPREDNISolone ACETATE 40 MG/ML VIAL. ONE (17:00)
[2017-08-29] MEDS ORDERED: BUPIVACAINE MPF 0.25% 10 ML VIAL. ONE (17:00)
--- NOTE | 2017-08-29 17:12 | PDOC4 ---
PROCEDURE Procedure At her request,I have injected her left knee joint under aseptic skin technique with marcaine and depomedrol solution and she tolerated the procedure without any side effects. KAIN MORALES MD Aug 29, 2017 17:12
--- NOTE | 2017-08-29 18:29 | CONS ---
DATE OF CONSULTATION: 08/29/2017 REFERRING PROVIDER: Dr. Garza. CONSULTING PROVIDER: Nahum Goodman MD REASON FOR CONSULTATION: Left lower extremity pain. CHIEF COMPLAINT: Lateral hip and leg pain. HISTORY OF PRESENT ILLNESS: The patient is a 72-year-old female with history of fibromyalgia who lives at home and had a fall a couple of weeks ago landing onto a hard rim of her laundry basket. She has had pain laterally at her hip since and it does radiate distally down her thigh and is worse with movement and weightbearing. She currently tells me that her knee really is not bothering her. She has had knee pain in the past, but none right now. She feels like her legs will just give out and buckle lately more frequently. She denies any preceding symptoms. ALLERGIES: None. MEDICATIONS: Reviewed, please see MRAD. PAST MEDICAL HISTORY: Fibromyalgia, hypertension. PAST SURGICAL HISTORY: None. SOCIAL HISTORY: No alcohol or tobacco. She normally is able to ambulate well around her house. FAMILY HISTORY: Noncontributory. REVIEW OF SYSTEMS: Twelve point review of systems negative except as per HPI. PHYSICAL EXAMINATION: VITAL SIGNS: Reviewed. HEENT: Normocephalic, atraumatic. Extraocular muscles are intact. CARDIOVASCULAR: Regular rate and rhythm. Mild edema at her ankles. LUNGS: Respirations are unlabored with symmetric chest rise. ABDOMEN: Obese. No tenderness. EXTREMITIES: Examination of the patient's left lower extremity reveals a JUSTEN hose and SCD in place to her calf. I am unable to palpate pulses through this. She has capillary refill present at her nailbeds. Her toes are slightly cool, but similar to the contralateral side. She can wiggle her toes. Examination of her knee reveals some tenderness at the joint lines. Limited knee range of motion while on bed. Knee is stable to varus and valgus. She is quite tender over her left greater trochanteric region. No pain with log rolling. Negative straight leg raise. IMAGING: Knee, femur, hip and pelvis as well as ankle x-rays were interpreted by myself. She has degenerative joint disease mild at her hips, severe advanced primary degenerative joint disease at her knee. Mild degenerative changes present in her ankle. She has degenerative disk disease present in her lower lumbar spine levels as well. IMPRESSION: 1. Likely left hip abductor tendonitis/bursitis. 2. Primary degenerative joint disease, left knee. PLAN: I did discuss different treatment options with her and I definitely think physical therapy will be needed to help for general conditioning as well as her mobility. We did talk about corticosteroid injections and she will prefer to hold off on any needles at this time. We did talk about other treatment options and in the end she would like to try some anti-inflammatory pain cream. We will get that ordered. NAHUM GOODMAN MD DR: CARO/vijay JOB#: [id number] / [id number] ARCELIA
[2017-08-30 03:00] VITALS: BP 151/79
[2017-08-30] MEDS: NYSTATIN TOPICAL POWDER 15GM BOTTLE. TP SCH ×2 (04:40→09:04)
[2017-08-30 07:00] VITALS: BP 145/55
--- NOTE | 2017-08-30 08:56 | CONS ---
DATE OF CONSULTATION: 08/29/2017 ATTENDING PHYSICIAN: Dr. Garza. The patient was seen at the request of Dr. Garza for rehab evaluation. 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 The patient with morbidly obesity, BMI is 45. The patient with known hypertension, depression, chronic lower back pain, neuropathy, fibromyalgia, family history of hypertension, not known allergic to any medication. The patient has not been getting up and walking much for the last 3 years. She usually sleeps in a recliner, uses walker for walking for a few feet. The patient was admitted this morning after she felt her legs gave out and tumbled over her laundry basket. No presyncopal symptoms. She was able to get up after, but markedly weak and very tender to the left hip area. The patient admits some lower back pain. The patient had radiological evidence of degenerative changes in her left knee and lumbar spine area. The patient apparently stopped walking as her left knee gives away. PHYSICAL EXAMINATION: The patient on physical examination today revealed an elderly female. She is obese, alert, oriented to time, place, person and circumstance and follows commands appropriately, moves all 4 extremities voluntarily protecting her left knee to some extent. She had crepitus on range of motion of both knee joints without any obvious knee joint effusion. She had pain free range of motion on both hip joints. She had evidence of chronic venous insufficiency of both feet and legs with decreased to absent deep tendon reflexes at both knees and ankles. She had equal perception of touch and pinprick sensation bilaterally. Overall, she had 4+/5 grade muscle strength, relatively increased weakness around left knee secondary to pain. She also had some tenderness to palpation over right sacroiliac joint area and left trochanteric bursa. Straight leg raising test is negative bilaterally. She requires some help with rolling from side to side. I have not tested her transfers or ambulation skills at this time. ASSESSMENT: An elderly female with morbid obesity with painful degenerative joint disease of left knee to rule out associated meniscal tear, left knee and also degenerative disk disease of lumbar vertebrae with recent fall and sprain, left hip with associated left trochanteric bursitis and clinical evidence of peripheral neuropathy, chronic venous insufficiency of both feet and legs and a patient with known hypertension, depression and fibromyalgia. RECOMMENDATION: To proceed with injecting painful left knee joint. To obtain x-rays of her knees and lumbar spine. To consider MRI scan of her left knee to rule out any internal derangement. Dr. Garza, I appreciate asking me to participate in the care of this interesting patient. I will be glad to follow her with you as needed for her rehabilitation. KAIN MORALES MD DR: BROOKS/vijay JOB#: [id number] / [id number]
[2017-08-30] MEDS: CHOLECALCIFEROL (VITAMIN D3) 1,000 UNIT TABLET PO SCH ×2 (09:02→21:32)
[2017-08-30] MEDS: MILNACIPRAN 50 MG TABLET PO SCH ×2 (09:02→21:32)
[2017-08-30] MEDS: PROPRANOLOL 40 MG TABLET. PO SCH ×2 (09:02→21:33)
[2017-08-30] MEDS: buPROPion XL 150 MG TAB.ER.24H. PO SCH ×2 (09:02→21:33)
[2017-08-30] MEDS: GABAPENTIN 300 MG CAPSULE. PO SCH ×3 (09:03→21:33)
[2017-08-30] MEDS: MEGESTROL 20 MG TABLET. PO SCH (09:03)
[2017-08-30] MEDS: TRIAMTERENE/HCTZ 37.5/25MG TABLET. PO SCH (09:03)
[2017-08-30] MEDS: ASCORBIC ACID 500 MG TABLET PO SCH ×2 (09:03→21:36)
[2017-08-30] MEDS: DICLOFENAC SODIUM 1% TOPICAL GEL 100GM TUBE. TP SCH ×2 (09:04→21:37)
[2017-08-30] MEDS: INSULIN ASPART 300 UNITS/3 ML INSULN.PEN SQ SCH ×3 (09:10→18:25)
[2017-08-30] MEDS ORDERED: methylPREDNISolone ACETATE 40 MG/ML VIAL. ONE (09:30)
[2017-08-30] MEDS ORDERED: methylPREDNISolone ACETATE 40 MG/ML VIAL. IM ONE (09:30)
[2017-08-30] MEDS ORDERED: BUPIVACAINE MPF 0.25% 10 ML VIAL. ONE (09:30)
[2017-08-30] MEDS ORDERED: BUPIVACAINE MPF 0.25% 10 ML VIAL. IJ ONE (09:30)
[2017-08-30 10:54] VITALS: BP 129/62
--- NOTE | 2017-08-30 13:37 | PDOC ---
PROGRESS NOTES Chief Complaint Chief Complaint 1. POssible Sciatica Left leg s/p left hip and knee injections (08/29 and 08/30) 2. Acute on chronic back pain 3. Obesity BMI 45 4. Fibromyalgia 5. HTN 6. LIkely autonomic dysfcn History of Present Illness History of Present Illness BEtter after injections at bedside Agreeable to SNU, [facility] has accepted - saturday Otherwise no medical issues PLAN: MRI ordered by physiatry - bone on bone OA already? [facility] PT/OT [facility] on saturday Dw pt and and SW Check VIt D levels Vitals Vitals Vital Signs Date Time Temp Pulse Resp B/P (MAP) Pulse Ox O2 Delivery O2 Flow Rate FiO2 08/30/17 10:54 97.8 77 18 129/62 (84) 95 Room Air 97.8 08/30/17 08:00 95.0 Physical Exam General: Alert, Oriented X3, Cooperative, No acute distress Abdomen: Normal bowel sounds, Soft, No tenderness, No hepatosplenomegaly, No masses Extremities: Other (positive SLR left ) Skin: No rashes, No breakdown, No significant lesion Labs LABS Laboratory Tests Test 08/29/17 16:23 08/29/17 21:26 08/30/17 07:08 08/30/17 11:11 Glucose (Fingerstick) 233 mg/dL (70-99) 228 mg/dL (70-99) 176 mg/dL (70-99) 242 mg/dL (70-99) Review of Systems Review of Systems pain MSK, weak, but no soa, CP, abd pain, emesis etc Assessment and Plan Assessmemt and Plan Problems Medical Problems: (1) Dehydration Status: Acute (2) Lactic acidosis Status: Acute (3) Left leg pain Status: Acute Problems: Comment Review of Relevant I have reviewed the following items jodie (where applicable) has been applied. Labs Laboratory Tests Test 08/28/17 20:10 08/28/17 22:50 08/29/17 05:00 08/29/17 06:00 White Blood Count 8.9 x10^3/uL (4.0-11.0) 9.2 x10^3/uL (4.0-11.0) Red Blood Count 4.32 x10^6/uL (3.50-5.40) 3.94 x10^6/uL (3.50-5.40) Hemoglobin 14.9 g/dL (12.0-15.5) 13.4 g/dL (12.0-15.5) Hematocrit 42.6 % (36.0-47.0) 38.4 % (36.0-47.0) Mean Corpuscular Volume 99 fL (79-100) 98 fL (79-100) Mean Corpuscular Hemoglobin 35 pg (25-35) 34 pg (25-35) Mean Corpuscular Hemoglobin Concent 35 g/dL (31-37) 35 g/dL (31-37) Red Cell Distribution Width 12.5 % (11.5-14.5) 12.7 % (11.5-14.5) Platelet Count 200 x10^3/uL (140-400) 179 x10^3/uL (140-400) Neutrophils (%) (Auto) 79 % (31-73) 72 % (31-73) Lymphocytes (%) (Auto) 10 % (24-48) 15 % (24-48) Monocytes (%) (Auto) 10 % (0-9) 11 % (0-9) Eosinophils (%) (Auto) 1 % (0-3) 2 % (0-3) Basophils (%) (Auto) 1 % (0-3) 1 % (0-3) Neutrophils # (Auto) 7.1 x10^3uL (1.8-7.7) 6.6 x10^3uL (1.8-7.7) Lymphocytes # (Auto) 0.9 x10^3/uL (1.0-4.8) 1.4 x10^3/uL (1.0-4.8) Monocytes # (Auto) 0.9 x10^3/uL (0.0-1.1) 1.0 x10^3/uL (0.0-1.1) Eosinophils # (Auto) 0.1 x10^3/uL (0.0-0.7) 0.2 x10^3/uL (0.0-0.7) Basophils # (Auto) 0.0 x10^3/uL (0.0-0.2) 0.1 x10^3/uL (0.0-0.2) Prothrombin Time 13.2 SEC (11.7-14.0) Prothromb Time International Ratio 1.1 (0.8-1.1) Activated Partial Thromboplast Time 24 SEC (24-38) Sodium Level 137 mmol/L (136-145) 140 mmol/L (136-145) Potassium Level 3.5 mmol/L (3.5-5.1) 3.5 mmol/L (3.5-5.1) Chloride Level 99 mmol/L (98-107) 104 mmol/L (98-107) Carbon Dioxide Level 31 mmol/L (21-32) 30 mmol/L (21-32) Anion Gap 7 (6-14) 6 (6-14) Blood Urea Nitrogen 29 mg/dL (7-20) 24 mg/dL (7-20) Creatinine 1.3 mg/dL (0.6-1.0) 0.9 mg/dL (0.6-1.0) Estimated GFR (Cockcroft-Gault) 40.5 61.9 BUN/Creatinine Ratio 22 (6-20) Glucose Level 319 mg/dL (70-99) 184 mg/dL (70-99) Lactic Acid Level 2.3 mmol/L (0.4-2.0) 1.2 mmol/L (0.4-2.0) Calcium Level 10.6 mg/dL (8.5-10.1) 9.6 mg/dL (8.5-10.1) Total Bilirubin 0.8 mg/dL (0.2-1.0) Aspartate Amino Transf (AST/SGOT) 34 U/L (15-37) Alanine Aminotransferase (ALT/SGPT) 44 U/L (14-59) Alkaline Phosphatase 94 U/L (46-116) Troponin I Quantitative < 0.017 ng/mL (0.000-0.055) < 0.017 ng/mL (0.000-0.055) LA-Kec-P-Type Natriuretic Peptide 147 pg/mL (0-124) Total Protein 7.5 g/dL (6.4-8.2) Albumin 3.3 g/dL (3.4-5.0) Albumin/Globulin Ratio 0.8 (1.0-1.7) Urine Collection Type Unknown Urine Color Ileana Urine Clarity Clear Urine pH 6.5 Urine Specific [place] >=1.030 Urine Protein Negative mg/dL (NEG-TRACE) Urine Glucose (UA) 250 mg/dL (NEG) Urine Ketones (Stick) Trace mg/dL (NEG) Urine Blood Large (NEG) Urine Nitrite Negative (NEG) Urine Bilirubin Negative (NEG) Urine Urobilinogen Dipstick 0.2 mg/dL (0.2 mg/dL) Urine Leukocyte Esterase Negative (NEG) Urine RBC Tntc /HPF (0-2) Urine WBC Occ /HPF (0-4) Urine Squamous Epithelial Cells Mod /LPF Urine Amorphous Sediment Present /HPF Urine Bacteria 0 /HPF (0-FEW) Urine Opiates Screen Neg (NEG) Urine Methadone Screen Neg (NEG) Urine Barbiturates Neg (NEG) Urine Phencyclidine Screen Neg (NEG) Urine Amphetamine/Methamphetamine Neg (NEG) Urine Benzodiazepines Screen Neg (NEG) Urine Cocaine Screen Neg (NEG) Urine Cannabinoids Screen Neg (NEG) Urine Ethyl Alcohol Neg (NEG) Test 08/29/17 07:24 08/29/17 10:22 08/29/17 10:40 08/29/17 12:15 Glucose (Fingerstick) 224 mg/dL (70-99) 243 mg/dL (70-99) 236 mg/dL (70-99) Troponin I Quantitative < 0.017 ng/mL (0.000-0.055) Test 08/29/17 16:23 08/29/17 21:26 08/30/17 07:08 08/30/17 11:11 Glucose (Fingerstick) 233 mg/dL (70-99) 228 mg/dL (70-99) 176 mg/dL (70-99) 242 mg/dL (70-99) Laboratory Tests Test 08/29/17 16:23 08/29/17 21:26 08/30/17 07:08 08/30/17 11:11 Glucose (Fingerstick) 233 mg/dL (70-99) 228 mg/dL (70-99) 176 mg/dL (70-99) 242 mg/dL (70-99) Medications Current Medications Fentanyl Citrate (Fentanyl 2ml Vial) 25 mcg PRN Q15MIN PRN IV PAIN GREATER THAN 3/10 Last administered on 08/28/17t 20:34; Start 08/28/17 at 20:15; Stop 08/29/17 at 20:14; Status DC Sodium Chloride 1,000 ml @ 1,000 mls/hr 1X ONCE IV Last administered on 21:15; Start 08/28/17 at 21:15; Stop 08/28/17 at 22:14; Status DC Ondansetron HCl (Zofran) 4 mg PRN Q8HRS PRN IV NAUSEA/VOMITING; Start 08/28/17 at 22:45; Stop 08/29/17 at 08:53; Status DC Fentanyl Citrate (Fentanyl 2ml Vial) 50 mcg PRN Q2HR PRN IV SEVERE PAIN Last administered on 08/29/17 05:27; Start 08/28/17 at 22:45; Stop 08/29/17 at 22:44 ; Status DC Sodium Chloride 1,000 ml @ 125 mls/hr Q8H IV Last administered on 08/29/17 14 :37; Start 08/28/17 at 22:42; Stop 08/29/17 at 22:41; Status DC Acetaminophen (Tylenol) 650 mg PRN Q4HRS PRN PO FEVER; Start 08/28/17 at 22:45 ; Stop 08/29/17 at 22:44; Status DC Insulin Aspart (NovoLOG) 0-5 UNITS TIDWMEALS SQ Last administered on 08/29/17 08:40; Start 08/29/17 at 08:00; Stop 08/29/17 at 08:53; Status DC Dextrose (Dextrose 50%-Water Syringe) 12.5 gm PRN Q15MIN PRN IV SEE COMMENTS; Start 08/28/17 at 22:45 Diclofenac Sodium (Voltaren) 1 sinan BID TP Last administered on 08/30/17 09:04 ; Start 08/29/17 at 09:00 Ondansetron HCl (Zofran) 4 mg PRN Q6HRS PRN IV NAUSEA/VOMITING; Start 08/29/17 at 09:00; Stop 08/30/17 at 08:59; Status DC Insulin Aspart (NovoLOG) 0-9 UNITS TIDWMEALS SQ Last administered on 09:10; Start 08/29/17 at 12:00 Dextrose (Dextrose 50%-Water Syringe) 12.5 gm PRN Q15MIN PRN IV SEE COMMENTS; Start 08/29/17 at 09:00; Status UNV Ascorbic Acid (Vitamin C) 500 mg BID PO Last administered on 08/30/17 09:03; Start 08/29/17 at 11:30 Bupropion HCl (Wellbutrin Xl) 150 mg BID PO Last administered on 08/30/17 09: 02; Start 08/29/17 at 11:30 Vitamin D (Vitamin D3) 1,000 unit BID PO Last administered on 08/30/17 09:02 ; Start 08/29/17 at 11:30 Milnacipran HCl (Savella) 100 mg BID PO Last administered on 08/30/17 09:02; Start 08/29/17 at 11:30 Propranolol HCl (Inderal) 40 mg BID PO Last administered on 08/30/17 09:02; Start 08/29/17 at 11:30 Triamterene/HCTZ (Maxzide 37.5/ 25mg) 1 tab DAILY PO Last administered on 08/30 09:03; Start 08/29/17 at 11:30 Gabapentin (Neurontin) 300 mg TID PO Last administered on 08/30/17 09:03; Start 08/29/17 at 14:00 Megestrol Acetate (Megace) 40 mg DAILY PO Last administered on 08/30/17 09:03 ; Start 08/29/17 at 11:30 Methylprednisolone Acetate (DEPO-Medrol 40MG VIAL) 40 mg 1X ONCE IM ; Start at 16:45; Stop 08/29/17 at 16:48; Status DC Bupivacaine HCl (Sensorcaine-Mpf 0.25%) 10 ml 1X ONCE IJ ; Start 08/29/17 at 16 :45; Stop 08/29/17 at 16:48; Status DC Nystatin (Nystop) 1 sinan BID TP Last administered on 08/30/17 09:04; Start at 09:00 Methylprednisolone Acetate (DEPO-Medrol 40MG VIAL) 40 mg 1X ONCE IM ; Start at 09:30; Stop 08/30/17 at 09:31; Status DC Bupivacaine HCl (Sensorcaine-Mpf 0.25%) 10 ml 1X ONCE IJ ; Start 08/30/17 at 09:30; Stop 08/30/17 at 09:31; Status DC Active Scripts Active Reported Propranolol Hcl 40 Mg Tablet 1 Tab PO BID Bupropion Xl (Bupropion Hcl) 150 Mg Tab.er.24h 1 Tab PO BID Savella (Milnacipran Hcl) 50 Mg Tablet 100 Mg PO BID Ascorbic Acid 500 Mg Tablet 500 Mg PO BID Vitamin D3 (Cholecalciferol (Vitamin D3)) 1,000 Unit Tablet 1 Tab PO BID Gabapentin 300 Mg Capsule 300 Mg PO TID Megestrol Acetate 40 Mg Tablet 40 Mg PO BID Triamterene-Hctz 37.5-25 Mg Tb (Triamterene/Hydrochlorothiazid) 1 Each Tablet 1 Tab PO DAILY Vitals/I & O Vital Sign - Last 24 Hours 08/29/17 08/29/17 08/29/17 08/29/17 15:00 15:05 15:10 19:00 Temp 98.1 98.1 Pulse 93 93 101 81 Resp 20 20 20 18 B/P (MAP) 137/58 (84) 145/76 (99) 131/71 (91) 152/65 (94) Pulse Ox 97 95 95 94 O2 Delivery Nasal Cannula Room Air Room Air Room Air O2 Flow Rate 2.0 08/29/17 08/29/17 08/29/17 08/30/17 20:45 22:01 23:00 03:00 Temp 98.8 95.5 98.8 95.5 Pulse 81 81 Resp 18 18 B/P (MAP) 152/65 112/65 (81) 151/79 (103) Pulse Ox 99 96 O2 Delivery Nasal Cannula Room Air Room Air O2 Flow Rate 2.0 08/30/17 08/30/17 08/30/17 08/30/17 07:00 08:00 09:02 10:54 Temp 97.8 97.8 97.8 97.8 Pulse 74 74 77 Resp 18 18 B/P (MAP) 145/55 (85) 145/55 129/62 (84) Pulse Ox 100 95 O2 Delivery Nasal Cannula Room Air Room Air O2 Flow Rate 3.0 95.0 Intake and Output 08/30/17 08/30/17 08/31/17 14:59 22:59 06:59 Intake Total 600 ml Balance 600 ml DELORES RODRIGUEZ MD Aug 30, 2017 13:37
[2017-08-30 15:00] VITALS: BP 135/60
--- NOTE | 2017-08-30 16:50 | RAD ---
MR of the left knee Indication: Instability. Technique: The standard multiplanar sequences are obtained. Findings: There is degradation due to some motion. There is also degradation due to body habitus. Medial meniscus: Severe degenerative tear. Lateral meniscus: Degenerative tear. Anterior cruciate ligament: Poorly seen. The image degradation could contribute to its poor visibility, but a chronic tear or rupture is suspected. There is intracondylar notch stenosis due to osteophytes, and the poor visualization could also be due to impingement of the ligament. Posterior cruciate ligament: Degenerative-type signal. No evidence of an acute rupture. Medial collateral ligament: Intact. Iliotibial band: Intact. Posterolateral structures: Fibular collateral ligament, biceps tendon and popliteus tendon are intact. Extensor mechanism: Intact. Fluid: Moderate joint effusion. Articular cartilage -patellofemoral joint: Moderate to severe chondromalacia. -medial compartment: Severe chondromalacia with subchondral bone surface exposure and flattening. -lateral compartment: Severe chondromalacia, typically at the posterior aspect of the joint. Bones: No significant lesion or acute fracture. Soft tissue: Unremarkable Impression: 1. Medial meniscal tear. 2. Lateral meniscal tear. 3. Poorly visualized anterior cruciate ligament, most likely due to a chronic rupture. Severe impingement from intracondylar osteophytes could also be considered. 4. Severe primary osteoarthritis. Electronically signed by: Jef Bills MD (08/30/2017 4:47 PM) [id number]
--- NOTE | 2017-08-30 17:53 | RAD ---
EXAM: Lumbar spine 2 or 3 views. HISTORY: Low back pain COMPARISON: None. FINDINGS: There is mild grade 1 anterolisthesis from L3 through L5. Vertebral body heights are maintained, and no fractures are identified. Degenerative disc disease appears moderate to severe at L5-S1 and mild from L1 through L5. Facet osteoarthritis is moderate to severe from L3 through S1. IMPRESSION: 1. Grade 1 anterolisthesis from L3 through L5. 2. Degenerative disc disease is moderate to severe at L5-S1 and mild elsewhere.
[2017-08-30 19:00] VITALS: BP 165/86
--- NOTE | 2017-08-30 19:05 | PDOC ---
PROGRESS NOTES Subjective Subjective She feels better with her knee but admits left hip area pain. Objective Objective Vital Signs Date Time Temp Pulse Resp B/P (MAP) Pulse Ox O2 Delivery O2 Flow Rate FiO2 08/30/17 15:00 97.8 75 18 135/60 (85) 95 Nasal Cannula 3.0 97.8 Intake and Output 08/31/17 07:00 Intake Total 1700 ml Output Total 1800 ml Balance -100 ml Intake Oral 1700 ml Output Urine Total 1800 ml Physical Exam Physical Exam She continues with requiring maximal help with rolling in bed and she had tenderness to palpation over sacroiliac joints and left trochanteric bursa. Mri scan revealed torn medial and lateral menisci and absent anterior cruciate ligament and x-rays revealed DDD of lumbar vertebrae. Assessment Assessment Problems Medical Problems: (1) Dehydration Status: Acute (2) Lactic acidosis Status: Acute (3) Left leg pain Status: Acute Plan Plan of Care At her request,I have injected painful left sacroiliac joint with marcaine and depomedrol solution under aseptic skin technique and she tolerated the procedure satisfactorily without any side effects. Comment Review of Relevant I have reviewed the following items jodie (where applicable) has been applied. Labs Laboratory Tests Test 08/28/17 20:10 08/28/17 22:50 08/29/17 05:00 08/29/17 06:00 White Blood Count 8.9 x10^3/uL (4.0-11.0) 9.2 x10^3/uL (4.0-11.0) Red Blood Count 4.32 x10^6/uL (3.50-5.40) 3.94 x10^6/uL (3.50-5.40) Hemoglobin 14.9 g/dL (12.0-15.5) 13.4 g/dL (12.0-15.5) Hematocrit 42.6 % (36.0-47.0) 38.4 % (36.0-47.0) Mean Corpuscular Volume 99 fL (79-100) 98 fL (79-100) Mean Corpuscular Hemoglobin 35 pg (25-35) 34 pg (25-35) Mean Corpuscular Hemoglobin Concent 35 g/dL (31-37) 35 g/dL (31-37) Red Cell Distribution Width 12.5 % (11.5-14.5) 12.7 % (11.5-14.5) Platelet Count 200 x10^3/uL (140-400) 179 x10^3/uL (140-400) Neutrophils (%) (Auto) 79 % (31-73) 72 % (31-73) Lymphocytes (%) (Auto) 10 % (24-48) 15 % (24-48) Monocytes (%) (Auto) 10 % (0-9) 11 % (0-9) Eosinophils (%) (Auto) 1 % (0-3) 2 % (0-3) Basophils (%) (Auto) 1 % (0-3) 1 % (0-3) Neutrophils # (Auto) 7.1 x10^3uL (1.8-7.7) 6.6 x10^3uL (1.8-7.7) Lymphocytes # (Auto) 0.9 x10^3/uL (1.0-4.8) 1.4 x10^3/uL (1.0-4.8) Monocytes # (Auto) 0.9 x10^3/uL (0.0-1.1) 1.0 x10^3/uL (0.0-1.1) Eosinophils # (Auto) 0.1 x10^3/uL (0.0-0.7) 0.2 x10^3/uL (0.0-0.7) Basophils # (Auto) 0.0 x10^3/uL (0.0-0.2) 0.1 x10^3/uL (0.0-0.2) Prothrombin Time 13.2 SEC (11.7-14.0) Prothromb Time International Ratio 1.1 (0.8-1.1) Activated Partial Thromboplast Time 24 SEC (24-38) Sodium Level 137 mmol/L (136-145) 140 mmol/L (136-145) Potassium Level 3.5 mmol/L (3.5-5.1) 3.5 mmol/L (3.5-5.1) Chloride Level 99 mmol/L (98-107) 104 mmol/L (98-107) Carbon Dioxide Level 31 mmol/L (21-32) 30 mmol/L (21-32) Anion Gap 7 (6-14) 6 (6-14) Blood Urea Nitrogen 29 mg/dL (7-20) 24 mg/dL (7-20) Creatinine 1.3 mg/dL (0.6-1.0) 0.9 mg/dL (0.6-1.0) Estimated GFR (Cockcroft-Gault) 40.5 61.9 BUN/Creatinine Ratio 22 (6-20) Glucose Level 319 mg/dL (70-99) 184 mg/dL (70-99) Lactic Acid Level 2.3 mmol/L (0.4-2.0) 1.2 mmol/L (0.4-2.0) Calcium Level 10.6 mg/dL (8.5-10.1) 9.6 mg/dL (8.5-10.1) Total Bilirubin 0.8 mg/dL (0.2-1.0) Aspartate Amino Transf (AST/SGOT) 34 U/L (15-37) Alanine Aminotransferase (ALT/SGPT) 44 U/L (14-59) Alkaline Phosphatase 94 U/L (46-116) Troponin I Quantitative < 0.017 ng/mL (0.000-0.055) < 0.017 ng/mL (0.000-0.055) TL-Sbu-R-Type Natriuretic Peptide 147 pg/mL (0-124) Total Protein 7.5 g/dL (6.4-8.2) Albumin 3.3 g/dL (3.4-5.0) Albumin/Globulin Ratio 0.8 (1.0-1.7) Urine Collection Type Unknown Urine Color Ileana Urine Clarity Clear Urine pH 6.5 Urine Specific [place] >=1.030 Urine Protein Negative mg/dL (NEG-TRACE) Urine Glucose (UA) 250 mg/dL (NEG) Urine Ketones (Stick) Trace mg/dL (NEG) Urine Blood Large (NEG) Urine Nitrite Negative (NEG) Urine Bilirubin Negative (NEG) Urine Urobilinogen Dipstick 0.2 mg/dL (0.2 mg/dL) Urine Leukocyte Esterase Negative (NEG) Urine RBC Tntc /HPF (0-2) Urine WBC Occ /HPF (0-4) Urine Squamous Epithelial Cells Mod /LPF Urine Amorphous Sediment Present /HPF Urine Bacteria 0 /HPF (0-FEW) Urine Opiates Screen Neg (NEG) Urine Methadone Screen Neg (NEG) Urine Barbiturates Neg (NEG) Urine Phencyclidine Screen Neg (NEG) Urine Amphetamine/Methamphetamine Neg (NEG) Urine Benzodiazepines Screen Neg (NEG) Urine Cocaine Screen Neg (NEG) Urine Cannabinoids Screen Neg (NEG) Urine Ethyl Alcohol Neg (NEG) Test 08/29/17 07:24 08/29/17 10:22 08/29/17 10:40 08/29/17 12:15 Glucose (Fingerstick) 224 mg/dL (70-99) 243 mg/dL (70-99) 236 mg/dL (70-99) Troponin I Quantitative < 0.017 ng/mL (0.000-0.055) Test 08/29/17 16:23 08/29/17 21:26 08/30/17 07:08 08/30/17 11:11 Glucose (Fingerstick) 233 mg/dL (70-99) 228 mg/dL (70-99) 176 mg/dL (70-99) 242 mg/dL (70-99) Test 08/30/17 16:51 Glucose (Fingerstick) 195 mg/dL (70-99) Laboratory Tests Test 08/29/17 21:26 08/30/17 07:08 08/30/17 11:11 08/30/17 16:51 Glucose (Fingerstick) 228 mg/dL (70-99) 176 mg/dL (70-99) 242 mg/dL (70-99) 195 mg/dL (70-99) Medications Current Medications Fentanyl Citrate (Fentanyl 2ml Vial) 25 mcg PRN Q15MIN PRN IV PAIN GREATER THAN 3/10 Last administered on 08/28/17 20:34; Start 08/28/17 at 20:15; Stop 08/29/17 at 20:14; Status DC Sodium Chloride 1,000 ml @ 1,000 mls/hr 1X ONCE IV Last administered on 21:15; Start 08/28/17 at 21:15; Stop 08/28/17 at 22:14; Status DC Ondansetron HCl (Zofran) 4 mg PRN Q8HRS PRN IV NAUSEA/VOMITING; Start 08/28/17 at 22:45; Stop 08/29/17 at 08:53; Status DC Fentanyl Citrate (Fentanyl 2ml Vial) 50 mcg PRN Q2HR PRN IV SEVERE PAIN Last administered on 08/29/17 05:27; Start 08/28/17 at 22:45; Stop 08/29/17 at 22:44 ; Status DC Sodium Chloride 1,000 ml @ 125 mls/hr Q8H IV Last administered on 08/29/17 14 :37; Start 08/28/17 at 22:42; Stop 08/29/17 at 22:41; Status DC Acetaminophen (Tylenol) 650 mg PRN Q4HRS PRN PO FEVER; Start 08/28/17 at 22:45 ; Stop 08/29/17 at 22:44; Status DC Insulin Aspart (NovoLOG) 0-5 UNITS TIDWMEALS SQ Last administered on 08/29/17 08:40; Start 08/29/17 at 08:00; Stop 08/29/17 at 08:53; Status DC Dextrose (Dextrose 50%-Water Syringe) 12.5 gm PRN Q15MIN PRN IV SEE COMMENTS; Start 08/28/17 at 22:45 Diclofenac Sodium (Voltaren) 1 sinan BID TP Last administered on 08/30/17 09:04 ; Start 08/29/17 at 09:00 Ondansetron HCl (Zofran) 4 mg PRN Q6HRS PRN IV NAUSEA/VOMITING; Start 08/29/17 at 09:00; Stop 08/30/17 at 08:59; Status DC Insulin Aspart (NovoLOG) 0-9 UNITS TIDWMEALS SQ Last administered on 18:25; Start 08/29/17 at 12:00 Dextrose (Dextrose 50%-Water Syringe) 12.5 gm PRN Q15MIN PRN IV SEE COMMENTS; Start 08/29/17 at 09:00; Status UNV Ascorbic Acid (Vitamin C) 500 mg BID PO Last administered on 08/30/17 09:03; Start 08/29/17 at 11:30 Bupropion HCl (Wellbutrin Xl) 150 mg BID PO Last administered on 08/30/17 09: 02; Start 08/29/17 at 11:30 Vitamin D (Vitamin D3) 1,000 unit BID PO Last administered on 08/30/17 09:02 ; Start 08/29/17 at 11:30 Milnacipran HCl (Savella) 100 mg BID PO Last administered on 08/30/17 09:02; Start 08/29/17 at 11:30 Propranolol HCl (Inderal) 40 mg BID PO Last administered on 08/30/17 09:02; Start 08/29/17 at 11:30 Triamterene/HCTZ (Maxzide 37.5/ 25mg) 1 tab DAILY PO Last administered on 08/30 09:03; Start 08/29/17 at 11:30 Gabapentin (Neurontin) 300 mg TID PO Last administered on 08/30/17 16:55; Start 08/29/17 at 14:00 Megestrol Acetate (Megace) 40 mg DAILY PO Last administered on 08/30/17 09:03 ; Start 08/29/17 at 11:30 Methylprednisolone Acetate (DEPO-Medrol 40MG VIAL) 40 mg 1X ONCE IM ; Start at 16:45; Stop 08/29/17 at 16:48; Status DC Bupivacaine HCl (Sensorcaine-Mpf 0.25%) 10 ml 1X ONCE IJ ; Start 08/29/17 at 16 :45; Stop 08/29/17 at 16:48; Status DC Nystatin (Nystop) 1 sinan BID TP Last administered on 08/30/17 09:04; Start at 09:00 Methylprednisolone Acetate (DEPO-Medrol 40MG VIAL) 40 mg 1X ONCE IM ; Start at 09:30; Stop 08/30/17 at 09:31; Status DC Bupivacaine HCl (Sensorcaine-Mpf 0.25%) 10 ml 1X ONCE IJ ; Start 08/30/17 at 09:30; Stop 08/30/17 at 09:31; Status DC Bupivacaine HCl (Sensorcaine-Mpf 0.25%) 10 ml STK-MED ONCE .ROUTE ; Start at 17:00; Stop 08/30/17 at 14:26; Status DC Methylprednisolone Acetate (DEPO-Medrol 40MG VIAL) 40 mg STK-MED ONCE .ROUTE ; Start 08/29/17 at 17:00; Stop 08/30/17 at 14:26; Status DC Bupivacaine HCl (Sensorcaine-Mpf 0.25%) 10 ml STK-MED ONCE .ROUTE ; Start 08/30 at 09:30; Stop 08/30/17 at 14:26; Status DC Methylprednisolone Acetate (DEPO-Medrol 40MG VIAL) 40 mg STK-MED ONCE .ROUTE ; Start 08/30/17 at 09:30; Stop 08/30/17 at 14:26; Status DC Active Scripts Active Reported Propranolol Hcl 40 Mg Tablet 1 Tab PO BID Bupropion Xl (Bupropion Hcl) 150 Mg Tab.er.24h 1 Tab PO BID Savella (Milnacipran Hcl) 50 Mg Tablet 100 Mg PO BID Ascorbic Acid 500 Mg Tablet 500 Mg PO BID Vitamin D3 (Cholecalciferol (Vitamin D3)) 1,000 Unit Tablet 1 Tab PO BID Gabapentin 300 Mg Capsule 300 Mg PO TID Megestrol Acetate 40 Mg Tablet 40 Mg PO BID Triamterene-Hctz 37.5-25 Mg Tb (Triamterene/Hydrochlorothiazid) 1 Each Tablet 1 Tab PO DAILY Vitals/I & O Vital Sign - Last 24 Hours 08/29/17 08/29/17 08/29/17 08/30/17 20:45 22:01 23:00 03:00 Temp 98.8 95.5 98.8 95.5 Pulse 81 81 Resp 18 18 B/P (MAP) 152/65 112/65 (81) 151/79 (103) Pulse Ox 99 96 O2 Delivery Nasal Cannula Room Air Room Air O2 Flow Rate 2.0 08/30/17 08/30/17 08/30/17 08/30/17 07:00 08:00 09:02 10:54 Temp 97.8 97.8 97.8 97.8 Pulse 74 74 77 Resp 18 18 B/P (MAP) 145/55 (85) 145/55 129/62 (84) Pulse Ox 100 95 O2 Delivery Nasal Cannula Room Air Room Air O2 Flow Rate 3.0 95.0 08/30/17 15:00 Temp 97.8 97.8 Pulse 75 Resp 18 B/P (MAP) 135/60 (85) Pulse Ox 95 O2 Delivery Nasal Cannula O2 Flow Rate 3.0 Intake and Output 08/30/17 08/30/17 08/31/17 15:00 23:00 07:00 Intake Total 600 ml 1100 ml Output Total 400 ml 1400 ml Balance 200 ml -300 ml KAIN MORALES MD Aug 30, 2017 19:05
[2017-08-30 23:00] VITALS: BP 158/88
[2017-08-31 03:00] VITALS: BP 182/81
[2017-08-31 07:00] VITALS: BP 174/72
[2017-08-31] MEDS: ASCORBIC ACID 500 MG TABLET PO SCH (09:22)
[2017-08-31] MEDS: MEGESTROL 20 MG TABLET. PO SCH (09:22)
[2017-08-31] MEDS: buPROPion XL 150 MG TAB.ER.24H. PO SCH (09:22)
[2017-08-31] MEDS: GABAPENTIN 300 MG CAPSULE. PO SCH ×2 (09:22→14:00)
[2017-08-31] MEDS: DICLOFENAC SODIUM 1% TOPICAL GEL 100GM TUBE. TP SCH (09:23)
[2017-08-31] MEDS: MILNACIPRAN 50 MG TABLET PO SCH (09:23)
[2017-08-31] MEDS: TRIAMTERENE/HCTZ 37.5/25MG TABLET. PO SCH (09:23)
[2017-08-31] MEDS: PROPRANOLOL 40 MG TABLET. PO SCH (09:23)
[2017-08-31] MEDS: CHOLECALCIFEROL (VITAMIN D3) 1,000 UNIT TABLET PO SCH (09:23)
[2017-08-31] MEDS: NYSTATIN TOPICAL POWDER 15GM BOTTLE. TP SCH (09:24)
[2017-08-31] MEDS: INSULIN ASPART 300 UNITS/3 ML INSULN.PEN SQ SCH ×2 (09:33→13:06)
--- NOTE | 2017-08-31 10:10 | PDOC ---
PROGRESS NOTES Subjective Subjective She admits less pain. Objective Objective Vital Signs Date Time Temp Pulse Resp B/P (MAP) Pulse Ox O2 Delivery O2 Flow Rate FiO2 08/31/17 09:23 174/72 08/31/17 08:10 Room Air 08/31/17 07:00 98.2 78 16 97 98.2 08/30/17 15:00 3.0 Physical Exam Physical Exam She is supine in bed,alert and does not seem to be in any distress.She continues to require help with mobility and self care. Assessment Assessment Problems Medical Problems: (1) Dehydration Status: Acute (2) Lactic acidosis Status: Acute (3) Left leg pain Status: Acute Plan Plan of Care To SNF when medically stable and to continue present physical and occupational therapy follow up as tolerated. Comment Review of Relevant I have reviewed the following items jodie (where applicable) has been applied. Labs Laboratory Tests Test 08/29/17 10:22 08/29/17 10:40 08/29/17 12:15 08/29/17 16:23 Glucose (Fingerstick) 243 mg/dL (70-99) 236 mg/dL (70-99) 233 mg/dL (70-99) Troponin I Quantitative < 0.017 ng/mL (0.000-0.055) Test 08/29/17 21:26 08/30/17 07:08 08/30/17 11:11 08/30/17 16:51 Glucose (Fingerstick) 228 mg/dL (70-99) 176 mg/dL (70-99) 242 mg/dL (70-99) 195 mg/dL (70-99) Test 08/30/17 20:56 08/31/17 07:13 Glucose (Fingerstick) 290 mg/dL (70-99) 233 mg/dL (70-99) Laboratory Tests Test 08/30/17 11:11 08/30/17 16:51 08/30/17 20:56 08/31/17 07:13 Glucose (Fingerstick) 242 mg/dL (70-99) 195 mg/dL (70-99) 290 mg/dL (70-99) 233 mg/dL (70-99) Medications Current Medications Fentanyl Citrate (Fentanyl 2ml Vial) 25 mcg PRN Q15MIN PRN IV PAIN GREATER THAN 3/10 Last administered on 08/28/17t 20:34; Start 11/8/17 at 20:15; Stop 08/29/17 at 20:14; Status DC Sodium Chloride 1,000 ml @ 1,000 mls/hr 1X ONCE IV Last administered on 21:15; Start 08/28/17 at 21:15; Stop 08/28/17 at 22:14; Status DC Ondansetron HCl (Zofran) 4 mg PRN Q8HRS PRN IV NAUSEA/VOMITING; Start 08/28/17 at 22:45; Stop 08/29/17 at 08:53; Status DC Fentanyl Citrate (Fentanyl 2ml Vial) 50 mcg PRN Q2HR PRN IV SEVERE PAIN Last administered on 08/29/17 05:27; Start 08/28/17 at 22:45; Stop 08/29/17 at 22:44 ; Status DC Sodium Chloride 1,000 ml @ 125 mls/hr Q8H IV Last administered on 08/29/17 14 :37; Start 08/28/17 at 22:42; Stop 08/29/17 at 22:41; Status DC Acetaminophen (Tylenol) 650 mg PRN Q4HRS PRN PO FEVER; Start 08/28/17 at 22:45 ; Stop 08/29/17 at 22:44; Status DC Insulin Aspart (NovoLOG) 0-5 UNITS TIDWMEALS SQ Last administered on 08/29/17 08:40; Start 08/29/17 at 08:00; Stop 08/29/17 at 08:53; Status DC Dextrose (Dextrose 50%-Water Syringe) 12.5 gm PRN Q15MIN PRN IV SEE COMMENTS; Start 08/28/17 at 22:45 Diclofenac Sodium (Voltaren) 1 sinan BID TP Last administered on 08/31/17 09:23 ; Start 08/29/17 at 09:00 Ondansetron HCl (Zofran) 4 mg PRN Q6HRS PRN IV NAUSEA/VOMITING; Start 08/29/17 at 09:00; Stop 08/30/17 at 08:59; Status DC Insulin Aspart (NovoLOG) 0-9 UNITS TIDWMEALS SQ Last administered on 09:33; Start 08/29/17 at 12:00 Dextrose (Dextrose 50%-Water Syringe) 12.5 gm PRN Q15MIN PRN IV SEE COMMENTS; Start 08/29/17 at 09:00; Status UNV Ascorbic Acid (Vitamin C) 500 mg BID PO Last administered on 08/31/17 09:22; Start 08/29/17 at 11:30 Bupropion HCl (Wellbutrin Xl) 150 mg BID PO Last administered on 08/31/17 09: 22; Start 08/29/17 at 11:30 Vitamin D (Vitamin D3) 1,000 unit BID PO Last administered on 08/31/17 09:23 ; Start 08/29/17 at 11:30 Milnacipran HCl (Savella) 100 mg BID PO Last administered on 08/31/17 09:23; Start 08/29/17 at 11:30 Propranolol HCl (Inderal) 40 mg BID PO Last administered on 08/31/17 09:23; Start 08/29/17 at 11:30 Triamterene/HCTZ (Maxzide 37.5/ 25mg) 1 tab DAILY PO Last administered on 08/31 09:23; Start 08/29/17 at 11:30 Gabapentin (Neurontin) 300 mg TID PO Last administered on 08/31/17 09:22; Start 08/29/17 at 14:00 Megestrol Acetate (Megace) 40 mg DAILY PO Last administered on 08/31/17 09:22 ; Start 08/29/17 at 11:30 Methylprednisolone Acetate (DEPO-Medrol 40MG VIAL) 40 mg 1X ONCE IM ; Start at 16:45; Stop 08/29/17 at 16:48; Status DC Bupivacaine HCl (Sensorcaine-Mpf 0.25%) 10 ml 1X ONCE IJ ; Start 08/29/17 at 16 :45; Stop 08/29/17 at 16:48; Status DC Nystatin (Nystop) 1 sinan BID TP Last administered on 08/31/17 09:24; Start at 09:00 Methylprednisolone Acetate (DEPO-Medrol 40MG VIAL) 40 mg 1X ONCE IM ; Start at 09:30; Stop 08/30/17 at 09:31; Status DC Bupivacaine HCl (Sensorcaine-Mpf 0.25%) 10 ml 1X ONCE IJ ; Start 08/30/17 at 09:30; Stop 08/30/17 at 09:31; Status DC Bupivacaine HCl (Sensorcaine-Mpf 0.25%) 10 ml STK-MED ONCE .ROUTE ; Start at 17:00; Stop 08/30/17 at 14:26; Status DC Methylprednisolone Acetate (DEPO-Medrol 40MG VIAL) 40 mg STK-MED ONCE .ROUTE ; Start 08/29/17 at 17:00; Stop 08/30/17 at 14:26; Status DC Bupivacaine HCl (Sensorcaine-Mpf 0.25%) 10 ml STK-MED ONCE .ROUTE ; Start 08/30 at 09:30; Stop 08/30/17 at 14:26; Status DC Methylprednisolone Acetate (DEPO-Medrol 40MG VIAL) 40 mg STK-MED ONCE .ROUTE ; Start 08/30/17 at 09:30; Stop 08/30/17 at 14:26; Status DC Active Scripts Active Reported Propranolol Hcl 40 Mg Tablet 1 Tab PO BID Bupropion Xl (Bupropion Hcl) 150 Mg Tab.er.24h 1 Tab PO BID Savella (Milnacipran Hcl) 50 Mg Tablet 100 Mg PO BID Ascorbic Acid 500 Mg Tablet 500 Mg PO BID Vitamin D3 (Cholecalciferol (Vitamin D3)) 1,000 Unit Tablet 1 Tab PO BID Gabapentin 300 Mg Capsule 300 Mg PO TID Megestrol Acetate 40 Mg Tablet 40 Mg PO BID Triamterene-Hctz 37.5-25 Mg Tb (Triamterene/Hydrochlorothiazid) 1 Each Tablet 1 Tab PO DAILY Vitals/I & O Vital Sign - Last 24 Hours 08/30/17 08/30/17 08/30/17 08/30/17 10:54 15:00 19:00 20:00 Temp 97.8 97.8 97.7 97.8 97.8 97.7 Pulse 77 75 80 Resp 18 18 20 B/P (MAP) 129/62 (84) 135/60 (85) 165/86 (112) Pulse Ox 95 95 97 O2 Delivery Room Air Nasal Cannula Room Air Room Air O2 Flow Rate 3.0 08/30/17 08/30/17 08/31/17 08/31/17 21:33 23:00 03:00 07:00 Temp 98.6 97.8 98.2 98.6 97.8 98.2 Pulse 75 74 86 78 Resp 20 18 16 B/P (MAP) 135/60 158/88 (111) 182/81 (114) 174/72 (106) Pulse Ox 98 98 97 O2 Delivery Room Air Room Air Room Air 08/31/17 08/31/17 08:10 09:23 B/P (MAP) 174/72 O2 Delivery Room Air KAIN MORALES MD Aug 31, 2017 10:10
[2017-08-31 11:10] VITALS: BP 162/76
--- NOTE | 2017-08-31 11:54 | PDOC ---
PROGRESS NOTES Chief Complaint Chief Complaint 1. Possible Sciatica Left leg 2. Acute on chronic back pain 3. Obesity BMI 45 4. Fibromyalgia 5. HTN 6. Likely autonomic dysfcn History of Present Illness History of Present Illness This is a nice 72 year old lady who was admitted to the hospital with a cc of LLE pain and dehydration. Today she was examined at bedside with her and RN present in the room. Pt. appears to be looking better and is in good humor. Pt is being followed by Ortho, Cardio and Physiatry. Possible discharge to SNU today if ok with specialists. Vitals Vitals Vital Signs Date Time Temp Pulse Resp B/P (MAP) Pulse Ox O2 Delivery O2 Flow Rate FiO2 08/31/17 11:10 98.4 76 16 162/76 (104) 96 Room Air 98.4 08/30/17 15:00 3.0 Physical Exam General: Alert, Oriented X3, Cooperative, No acute distress Heart: Regular rate, Normal S1, Normal S2 Lungs: Clear Abdomen: Normal bowel sounds, Soft, No tenderness, No hepatosplenomegaly, No masses Extremities: Other (positive SLR left ) Skin: No rashes, No breakdown, No significant lesion Labs LABS Laboratory Tests Test 08/30/17 16:51 08/30/17 20:56 08/31/17 07:13 08/31/17 10:57 Glucose (Fingerstick) 195 mg/dL (70-99) 290 mg/dL (70-99) 233 mg/dL (70-99) 270 mg/dL (70-99) Review of Systems Review of Systems fatigue and weakness Assessment and Plan Assessmemt and Plan Problems Medical Problems: (1) Dehydration Status: Acute (2) Lactic acidosis Status: Acute (3) Left leg pain Status: Acute Assessment: Possible Sciatica Left leg Acute on chronic back pain Obesity BMI 45 Fibromyalgia HTN Likely autonomic dysfcn Plan: Possible discharge to SNU if ok with specialists Continue home meds PT/OT Agree with specialists recommendations Follow up with PCP if needed Problems: Comment Review of Relevant I have reviewed the following items jodie (where applicable) has been applied. Labs Laboratory Tests Test 08/29/17 12:15 08/29/17 16:23 08/29/17 21:26 08/30/17 07:08 Glucose (Fingerstick) 236 mg/dL (70-99) 233 mg/dL (70-99) 228 mg/dL (70-99) 176 mg/dL (70-99) Test 08/30/17 11:11 08/30/17 16:51 08/30/17 20:56 08/31/17 07:13 Glucose (Fingerstick) 242 mg/dL (70-99) 195 mg/dL (70-99) 290 mg/dL (70-99) 233 mg/dL (70-99) Test 08/31/17 10:57 Glucose (Fingerstick) 270 mg/dL (70-99) Laboratory Tests Test 08/30/17 16:51 08/30/17 20:56 08/31/17 07:13 08/31/17 10:57 Glucose (Fingerstick) 195 mg/dL (70-99) 290 mg/dL (70-99) 233 mg/dL (70-99) 270 mg/dL (70-99) Medications Current Medications Fentanyl Citrate (Fentanyl 2ml Vial) 25 mcg PRN Q15MIN PRN IV PAIN GREATER THAN 3/10 Last administered on 08/28/17 20:34; Start 08/28/17 at 20:15; Stop 08/29/17 at 20:14; Status DC Sodium Chloride 1,000 ml @ 1,000 mls/hr 1X ONCE IV Last administered on 21:15; Start 08/28/17 at 21:15; Stop 08/28/17 at 22:14; Status DC Ondansetron HCl (Zofran) 4 mg PRN Q8HRS PRN IV NAUSEA/VOMITING; Start 08/28/17 at 22:45; Stop 08/29/17 at 08:53; Status DC Fentanyl Citrate (Fentanyl 2ml Vial) 50 mcg PRN Q2HR PRN IV SEVERE PAIN Last administered on 08/29/17 05:27; Start 08/28/17 at 22:45; Stop 08/29/17 at 22:44 ; Status DC Sodium Chloride 1,000 ml @ 125 mls/hr Q8H IV Last administered on 08/29/17 14 :37; Start 08/28/17 at 22:42; Stop 08/29/17 at 22:41; Status DC Acetaminophen (Tylenol) 650 mg PRN Q4HRS PRN PO FEVER; Start 08/28/17 at 22:45 ; Stop 08/29/17 at 22:44; Status DC Insulin Aspart (NovoLOG) 0-5 UNITS TIDWMEALS SQ Last administered on 08/29/17 08:40; Start 08/29/17 at 08:00; Stop 08/29/17 at 08:53; Status DC Dextrose (Dextrose 50%-Water Syringe) 12.5 gm PRN Q15MIN PRN IV SEE COMMENTS; Start 08/28/17 at 22:45 Diclofenac Sodium (Voltaren) 1 sinan BID TP Last administered on 08/31/17 09:23 ; Start 08/29/17 at 09:00 Ondansetron HCl (Zofran) 4 mg PRN Q6HRS PRN IV NAUSEA/VOMITING; Start 08/29/17 at 09:00; Stop 08/30/17 at 08:59; Status DC Insulin Aspart (NovoLOG) 0-9 UNITS TIDWMEALS SQ Last administered on 09:33; Start 08/29/17 at 12:00 Dextrose (Dextrose 50%-Water Syringe) 12.5 gm PRN Q15MIN PRN IV SEE COMMENTS; Start 08/29/17 at 09:00; Status UNV Ascorbic Acid (Vitamin C) 500 mg BID PO Last administered on 08/31/17 09:22; Start 08/29/17 at 11:30 Bupropion HCl (Wellbutrin Xl) 150 mg BID PO Last administered on 08/31/17 09: 22; Start 08/29/17 at 11:30 Vitamin D (Vitamin D3) 1,000 unit BID PO Last administered on 08/31/17 09:23 ; Start 08/29/17 at 11:30 Milnacipran HCl (Savella) 100 mg BID PO Last administered on 08/31/17 09:23; Start 08/29/17 at 11:30 Propranolol HCl (Inderal) 40 mg BID PO Last administered on 08/31/17 09:23; Start 08/29/17 at 11:30 Triamterene/HCTZ (Maxzide 37.5/ 25mg) 1 tab DAILY PO Last administered on 08/31 09:23; Start 08/29/17 at 11:30 Gabapentin (Neurontin) 300 mg TID PO Last administered on 08/31/17 09:22; Start 08/29/17 at 14:00 Megestrol Acetate (Megace) 40 mg DAILY PO Last administered on 08/31/17 09:22 ; Start 08/29/17 at 11:30 Methylprednisolone Acetate (DEPO-Medrol 40MG VIAL) 40 mg 1X ONCE IM ; Start at 16:45; Stop 08/29/17 at 16:48; Status DC Bupivacaine HCl (Sensorcaine-Mpf 0.25%) 10 ml 1X ONCE IJ ; Start 08/29/17 at 16 :45; Stop 08/29/17 at 16:48; Status DC Nystatin (Nystop) 1 sinan BID TP Last administered on 08/31/17 09:24; Start at 09:00 Methylprednisolone Acetate (DEPO-Medrol 40MG VIAL) 40 mg 1X ONCE IM ; Start at 09:30; Stop 08/30/17 at 09:31; Status DC Bupivacaine HCl (Sensorcaine-Mpf 0.25%) 10 ml 1X ONCE IJ ; Start 08/30/17 at 09:30; Stop 08/30/17 at 09:31; Status DC Bupivacaine HCl (Sensorcaine-Mpf 0.25%) 10 ml STK-MED ONCE .ROUTE ; Start at 17:00; Stop 08/30/17 at 14:26; Status DC Methylprednisolone Acetate (DEPO-Medrol 40MG VIAL) 40 mg STK-MED ONCE .ROUTE ; Start 08/29/17 at 17:00; Stop 08/30/17 at 14:26; Status DC Bupivacaine HCl (Sensorcaine-Mpf 0.25%) 10 ml STK-MED ONCE .ROUTE ; Start 08/30 at 09:30; Stop 08/30/17 at 14:26; Status DC Methylprednisolone Acetate (DEPO-Medrol 40MG VIAL) 40 mg STK-MED ONCE .ROUTE ; Start 08/30/17 at 09:30; Stop 08/30/17 at 14:26; Status DC Active Scripts Active Reported Propranolol Hcl 40 Mg Tablet 1 Tab PO BID Bupropion Xl (Bupropion Hcl) 150 Mg Tab.er.24h 1 Tab PO BID Savella (Milnacipran Hcl) 50 Mg Tablet 100 Mg PO BID Ascorbic Acid 500 Mg Tablet 500 Mg PO BID Vitamin D3 (Cholecalciferol (Vitamin D3)) 1,000 Unit Tablet 1 Tab PO BID Gabapentin 300 Mg Capsule 300 Mg PO TID Megestrol Acetate 40 Mg Tablet 40 Mg PO BID Triamterene-Hctz 37.5-25 Mg Tb (Triamterene/Hydrochlorothiazid) 1 Each Tablet 1 Tab PO DAILY Vitals/I & O Vital Sign - Last 24 Hours 08/30/17 08/30/17 08/30/17 08/30/17 15:00 19:00 20:00 21:33 Temp 97.8 97.7 97.8 97.7 Pulse 75 80 75 Resp 18 20 B/P (MAP) 135/60 (85) 165/86 (112) 135/60 Pulse Ox 95 97 O2 Delivery Nasal Cannula Room Air Room Air O2 Flow Rate 3.0 08/30/17 08/31/17 08/31/17 08/31/17 23:00 03:00 07:00 08:10 Temp 98.6 97.8 98.2 98.6 97.8 98.2 Pulse 74 86 78 Resp 20 18 16 B/P (MAP) 158/88 (111) 182/81 (114) 174/72 (106) Pulse Ox 98 98 97 O2 Delivery Room Air Room Air Room Air Room Air 08/31/17 08/31/17 09:23 11:10 Temp 98.4 98.4 Pulse 76 Resp 16 B/P (MAP) 174/72 162/76 (104) Pulse Ox 96 O2 Delivery Room Air SCOTT TAYLOR III, DO Aug 31, 2017 11:54
== END 2017-08-31 15:34 | DRG 551 ==
LOC: ER 19:46 → 4 NORTH 22:37
PROVIDERS: ADMIT Internal Medicine; ATTEND Internal Medicine
PROC: 3E0U3BZ Introduction of Anesthetic Agent into Joints, Percutaneous Approach (ICD-10-PCS; principal; 2017-08-29)
PROC: 3E0U33Z Introduction of Anti-inflammatory into Joints, Percutaneous Approach (ICD-10-PCS; 2017-08-29)
DX: M54.42 Lumbago with sciatica, left side (principal); N17.0 Acute kidney failure with tubular necrosis; E87.2 Acidosis; Z68.42 Body mass index [BMI] 45.0-49.9, adult; E66.01 Morbid (severe) obesity due to excess calories; G62.9 Polyneuropathy, unspecified; M17.12 Unilateral primary osteoarthritis, left knee; M70.62 Trochanteric bursitis, left hip; E86.0 Dehydration; G89.29 Other chronic pain; I10 Essential (primary) hypertension; F32.9 Major depressive disorder, single episode, unspecified; M79.7 Fibromyalgia; I87.2 Venous insufficiency (chronic) (peripheral); G90.8 Other disorders of autonomic nervous system; Z82.49 Family history of ischemic heart disease and other diseases of the circulatory system; Z91.81 History of falling
CPT/HCPCS: 36415; 51701; 70450; 71010; 72100; 72125; 73502; 73552; 73590; 73610; 73721; 80048; 80053; 80307; 81001; 82306; 82962; 83605; 83880; 84484; 85025; 85610; 85730; 93005; 93923; 93971; 96374; J1030; J1815; J3010; J3490; J7030; 97110; 97530; 99285-25; G0479

== ENCOUNTER → 2017-09-11 | Outpatient (CLI) | payer MEDICARE, OTHER ==
[2017-09-11 06:16] LABS: ADD MAN DIFF? NO
[2017-09-11 06:40] LABS: BASO # 0.1 x10^3/uL (0.0-0.2); BASO % 1 % (0-3); EOS % 2 % (0-3); HEMOGLOBIN 13.8 g/dL (12.0-15.5); LYMPH # 1.3 x10^3/uL (1.0-4.8); LYMPH % 14 % (24-48); MEAN CORPUSCULAR HEMOGLOBIN 35 pg (25-35); MEAN CORPUSCULAR HGB CONC 34 g/dL (31-37); MEAN CORPUSCULAR VOLUME 100 fL (79-100); MONO % 12 % (0-9); NEUT % 71 % (31-73); PLATELET COUNT 136 x10^3/uL (140-400); RED BLOOD COUNT 3.99 x10^6/uL (3.50-5.40); RED CELL DISTRIBUTION WIDTH 12.9 % (11.5-14.5); WHITE BLOOD COUNT 8.8 x10^3/uL (4.0-11.0)
== END | disposition home or self-care (01) ==
LOC: SPEC 06:00
DX: I10 Essential (primary) hypertension (principal); G62.9 Polyneuropathy, unspecified; E86.0 Dehydration
CPT/HCPCS: 36415; 85025